=== PATIENT | male | born 1965 | race Caucasian/White ===

== ENCOUNTER 2025-02-04 16:25 | Inpatient (IN) | payer OTHER, SELFPAY ==
[2025-02-04 16:34] VITALS: BP 192/79; PULSE 115; RESP 18; TEMP 36.8; O2SAT 98
--- NOTE | 2025-02-04 16:37 | W.ED.PSYCHS ---
HPI - Psych General: Chief Complaint: Psychiatric Symptoms Stated Complaint: mhe Time Seen by Provider: 02/04/25 16:25 History of Present Illness: Patient is a 59-year-old male brought in by police department of [facility], for making terroristic threats. He states you all are going to and I took anthrax today. [facility] policewoman relates that the city brought him to the [facility] for a 96-hour hold. The 96-hour hold was signed off by [employer], and patient was brought here for medical screening examination and placement in psychiatric facility. He has charges for terroristic threats. Patient states to officer at bedside I am bombing the building, I already called in a bomb, you are a man anyway. When I looked at him stating what about the sweet children and the old people, looking at me he states you are all anyway. Patient would not stop talking, in tangential manner, regarding the [place] war, and anthrax. Officer notes that he was cooperative until he got to the door ER at which time he started to collapse, and talking as noted above. Associated symptoms: Reports delusions Related Data Home Medications ?Medication ?Instructions ?Recorded ?Confirmed No Known Home Medications 02/04/25 02/04/25 Review of Systems General: Reports: ROS unobtainable due to medical condition and ROS unobtainable due to mental status Physical Exam Const: COMMON NORMALS: patient oriented x3 NUTRITIONAL APPEARANCE: thin and underweight HENMT: COMMON NORMALS: normocephalic, atraumatic and hearing grossly normal bilaterally HEAD & SCALP: normocephalic and atraumatic OTHER: Cleft palate repair upper orbicularis and roof of mouth Resp: COMMON NORMALS: normal respiratory effort, No retractions and No use of accessory muscles AUSCULTATION: other (course t/o) Cardio: RATE: tachycardic GI: COMMON NORMALS: Normal to inspection, nondistended, normoactive bowel sounds present, Soft to palpation and non-tender PALPATION: Yes Soft to palpation : COMMON NORMALS: Yes no CVA tenderness BLADDER/KIDNEY EXAM: Yes no CVA tenderness Back/Pelvis: COMMON NORMALS: no CVA tenderness Extremity: COMMON NORMALS: full ROM and capillary refill normal Neuro: COMMON NORMALS: patient oriented x3 and CN's II-XII intact bilaterally Psych: COMMON NORMALS: negative for mental status grossly normal, negative for Normal thought process present, negative for cooperative, negative for normal affect, negative for speech normal and negative for activity/motor behavior normal APPEARANCE: Yes unkempt, Yes disheveled and Yes bizarre ATTITUDE: Yes bizarre, Yes uncooperative, Yes Belligerent attititude/behavior present, Yes agitated, Yes aggressive and Yes hostile SPEECH: No normal speech, Yes excessive, Yes rapid and Yes Pressured speech present MOOD & AFFECT: Yes elevated mood, Yes anxious, Yes hostile affect and Yes expansive affect THOUGHT PROCESS: abnormal, Confabulating thought process present, Flight of ideas present, Illogical thought process present, Tangential thought process present and racing thoughts THOUGHT CONTENT: Yes delusions and Yes Hallucination(s) present ATTENTION/CONCENTRATION: Yes concentration grossly impaired INSIGHT: Poor insight present (Psych) JUDGEMENT: Poor judgement present (Psych) Skin: NARRATIVE SKIN EXAM: Small superficial lacerations to bilateral ankles from handcuffs. Handcuffs are not tight Course Reevaluation(s): Reevaluation #1: Improved after Geodon and Ativan. Send of riding the sandwich Reevaluation #2: Patient awakes with stimulus, calm, sleeping. Consultations: Consultation #1: Excepted by Dr. Stovall however her urine analysis and drug screen is still pending and will need to be obtained and order carried over for psychiatric unit Vital Signs: Vital signs: Vital Signs Temperature 98.2 F 02/04/25 16:34 Pulse Rate 79 02/04/25 16:51 Respiratory Rate 14 02/04/25 16:51 Blood Pressure 97/63 02/04/25 16:51 Pulse Oximetry 98 02/04/25 16:51 Oxygen Delivery Me thod Room Air 02/04/25 16:34 MDM - Psych Medical Decision Making Patient was physically assessed, noting dry mucous membranes, offered water, patient declined. He continued to talk in tangential manner. Geodon 20 mg, Ativan 2 mg IM were given. Patient was offered Jean, Dr. Gautam, and sandwich. He finally related he would take a Dr. Gautam and [place]. Medical Records I reviewed the patient's medical records. Lab Data 02/04/25 18:01 02/04/25 18:01 Laboratory Results WBC 10.35 10^3/uL (3.29-11.43) 02/04/25 18: RBC 4.61 10^6/uL (3.85-5.65) 02/04/25 18:01 Hgb 14.50 g/dL (11.27-16.99) 02/04/25 18:01 Hct 41.6 % (37-53) 02/04/25 18:01 MCV 90.2 fl (82-101) 02/04/25 18: MCH 31.5 pg (27-33) 02/04/25 18: MCHC 34.9 g/dL (30-55) 02/04/25 18: RDW 12.5 % (12.1-15.1) 02/04/25 18: Plt Count 185 10^3/cmm (157-399) 02/04/25 18: MPV 9.5 fL (7.4-10.4) 02/04/25 18:01 Neut % (Auto) 75.5 % 02/04/25 18:01 Lymph % (Auto) 15.7 % 02/04/25 18:01 [place] % (Auto) 7.3 % 02/04/25 18:01 Eos % (Auto) 0.8 % 02/04/25 18:01 Baso % (Auto) 0.4 % 02/04/25 18: Neut # (Auto) 7.82 10^3/uL (1.8-7.7) H 02/04/25 18:01 Lymph # (Auto) 1.6 10^3/uL (0.8-4.8) 02/04/25 18:01 [place] # (Auto) 0.8 10^3/uL (0.2-0.9) 02/04/25 18:01 Eos # (Auto) 0.1 10^3/uL (0.0-0.8) 02/04/25 18:01 Baso # (Auto) 0.0 10^3/uL (0.0-0.1) 02/04/25 18:01 Nucleated RBC % (auto) 0 % 02/04/25 18: Nucleated RBCs # 0.0 /100WBC 02/04/25 18:01 Sodium 140 mmol/L (136-145) 02/04/25 18: Potassium 3.0 mmol/L (3.5-5.1) L 02/04/25 18:01 Chloride 106 mmol/L (98-107) 02/04/25 18:01 Carbon Dioxide 22 mmol/L (22-29) 02/04/25 18:01 Anion Gap 15.0 (5-19) 02/04/25 18:01 BUN 16 mg/dL (6-20) 02/04/25 18:01 Creatinine 0.5 mg/dL (0.7-1.2) L 02/04/25 18:01 GFR Calculation 171.4 mL/min (90-130) H 02/04/25 18:01 Glucose 174 mg/dL (65-115) H 02/04/25 18:01 POC Glucose 205 mg/dL (70-110) H 02/04/25 17:13 Calculated Osmolality 295 mOsm/kg (285-295) 02/04/25 18:01 Calcium 9.2 mg/dL (8.5-10.5) 02/04/25 18:01 Total Bilirubin 0.7 mg/dL (0.15-1.2) 02/04/25 18:01 AST 29 U/L (0-40) 02/04/25 18:01 ALT 28 U/L (0-41) 02/04/25 18:01 Alkaline Phosphatase 109 U/L (40-130) 02/04/25 18:01 Total Protein 6.5 g/dL (6.6-8.7) L 02/04/25 18:01 Albumin 4.1 g/dL (3.5-5.2) 02/04/25 18: Globulin 2.4 g/dL (1.3-4.6) 02/04/25 18:01 TSH 0.51 uIU/mL (0.27-4.20) 02/04/25 18:01 Salicylates < 0.3 mg/dL (3-10) L 02/04/25 18:01 Acetaminophen < 5.0 ug/mL (10-30) L 02/04/25 18:01 Ethyl Alcohol < 10 mg/dL (0-10) 02/04/25 18:01 No radiology studies performed this visit Discharge Plan Discharge Patient Disposition: Xfer Psychiatric Hosp Clinical Impression: Acute psychosis, Patient needs psychiatric hold for evaluation, Hypokalemia Condition: Stable Discharge Diet: Usual diet Discharge Activity: Resume usual activity Print Language: Latvian Coding Level of Care Code ED Cane Piler for Naveen Cheng
[2025-02-04 16:51] VITALS: BP 97/63; PULSE 79; RESP 14; O2SAT 98
[2025-02-04] MEDS: LORazepam 1 MG/0.5 ML injection 2 MG IM (17:10)
[2025-02-04 18:09] LABS: Hematocrit 41.6 % (37-53); Hemoglobin 14.50 g/dL (11.27-16.99); Mean Corpuscular HGB Conc 34.9 g/dL (30-55); Mean Corpuscular Hemoglobin 31.5 pg (27-33); Mean Corpuscular Volume 90.2 fl (82-101); Nucleated Red Blood Cells % 0 %; Platelet Count 185 10^3/cmm (157-399); Red Blood Count 4.61 10^6/uL (3.85-5.65); White Blood Count 10.35 10^3/uL (3.29-11.43)
[2025-02-04 18:37] LABS: Alanine Aminotransferase 28 U/L (0-41); Albumin Level 4.1 g/dL (3.5-5.2); Alkaline Phosphatase 109 U/L (40-130); Blood Urea Nitrogen 16 mg/dL (6-20); Calcium 9.2 mg/dL (8.5-10.5); Carbon Dioxide 22 mmol/L (22-29); Chloride 106 mmol/L (98-107); Globulin 2.4 g/dL (1.3-4.6); Glucose 174 mg/dL (65-115); Osmolality Calculated 295 mOsm/kg (285-295); Sodium 140 mmol/L (136-145); Thyroid Stimulating Hormone 0.51 uIU/mL (0.27-4.20); Total Protein 6.5 g/dL (6.6-8.7)
[2025-02-04 18:54] LABS: Acetaminophen < 5.0 ug/mL (10-30); Alcohol Level < 10 mg/dL (0-10); Salicylate < 0.3 mg/dL (3-10)
[2025-02-04 18:56] LABS: Anion Gap 15.0 (5-19); Aspartate Amino Transferase 29 U/L (0-40); Potassium 3.0 mmol/L (3.5-5.1)
[2025-02-04 20:52] VITALS: BP 97/63; PULSE 79; O2SAT 98
[2025-02-04 21:00] VITALS: BP 95/64; PULSE 81; RESP 14; TEMP 36.6; O2SAT 100
--- NOTE | 2025-02-05 00:40 | PC.NURSE ---
Addendum entered by Riley Smith RN 02/05/25 01:57: Pt. had a small abrasion on each ankle A band-aide ws placed on each side. no behavioral issues throughout the assessment. Pt. needs to be re-evaluated for allergies as he was in and out of consciousness. When asked he said no, but needs a follow up. Addendum entered by Riley Smith RN 02/05/25 01:54: Pt. had a small abrasion on each ankle A band-aide ws placed on each side. no behavioral issues throughout the assessment. Pt. needs to be re-evaluated for allergies as he was in and out of consciencd Original Note: Pt. had a small abrasion on each ankle,cd
[2025-02-05 06:00] VITALS: PULSE 97; TEMP 36.4
--- NOTE | 2025-02-05 11:47 | PC.NURSE ---
[facility] in [facility] was transferred to [facility]. Medication list is from 2019. Ziprasidone 80mg BID Seroquel 200mg 2 tabs @ HS Lantus 36 units SubQ Every AM Lantus 32 units SubQ Every HS Metformin 850mg TID Jardiance 25mg Daily Venlefaxine 75mg take 2 tabs BID
--- NOTE | 2025-02-05 12:38 | PC.NURSE ---
Pt. is refusing to give a urine sample unless we give it to a government official.
[2025-02-05 12:51] LABS: Glucose Urine UA 2+ (Normal); Nitrate Urine Negative (Negative); Specific Gravity, Urine 1.015 (1.005-1.030)
[2025-02-05 12:56] LABS: Add Urine Microscopic? YES
[2025-02-05 13:01] LABS: PCP Screen Urine Negative (Negative)
--- NOTE | 2025-02-05 14:48 | PC.NURSE ---
Pt. Blood sugar was [address] Stovall informed.
--- NOTE | 2025-02-05 15:03 | PC.NURSE ---
Verbal order given by Dr. Stovall for moderate sliding scale insulin with meals and @ HS, Seroquel 50mg PO @ HS, Geodon 40mg PO BID PRN, and Geodon 20mg Inj prn.
--- NOTE | 2025-02-05 15:42 | PC.NURSE ---
Pt. believes he has anthrax and is wanting to be placed in the same cell so he does not contaminate another cell. He wants cigarettes and water to be placed with him and he said when he dies his body can be burned so not to infect others. The brother came to visit and said he was DX with bi polar and schizophrenia after [place], and that he was given a bunch of vaccinations that made him sick and and he got down to less than 100 lbs. Brother said pt. is 100% disabled. Pt. was living in [facility] and moved to [facility]. The brother was not very helpful as far as medication went. Brother did not know what medications he takes or what pharmacy the medications get filled at. The brother said he has never seen his brother like this and thought he seemed fine, until signee informed him of some of the things pt. had been saying.
--- NOTE | 2025-02-05 18:03 | P.NPUHP_ITS ---
Providers/Chief Complaint 2 Admitting Physician: Lloyd Stovlal MD Chief Complaint: mhe HPI NPU History of Present Illness Filiberto Espinoza is a 59 year old male who presented to the emergency department with the following report: Chief Complaint: Psychiatric Symptoms Stated Complaint: mhe Time Seen by Provider: 02/04/25 16:25 History of Present Illness: Patient is a 59-year-old male brought in by police department of [facility], for making terroristic threats. He states you all are going to and I took anthrax today. [facility] community relations police lieutenant relates that the city brought him to the alf for a 96-hour hold. The 96-hour hold was signed off by Mental Health Program Manager, and patient was brought here for medical screening examination and placement in psychiatric facility. He has charges for terroristic threats. Patient states to officer at bedside I am bombing the building, I already called in a bomb, you are a man anyway. When I looked at him stating what about the sweet children and the old people, looking at me he states you are all anyway. Patient would not stop talking, in tangential manner, regarding the [place] war, and anthrax. Officer notes that he was cooperative until he got to the door ER at which time he started to collapse, and talking as noted above. Associated symptoms: Reports delusions He was admitted to the neuropsychiatric unit for definitive treatment of those issues. He has not submitted for a UDS and presented unknown to [facility] psychiatric through inpatient or outpatient services reporting: Chief complaint Presentation for evaluation of chronic mental health symptoms including paranoia, depression, and history of multiple psychiatric hospitalizations. History of the present complaint Reported being a and described the local community as consisting primarily of veterans, expressing a strong sense of responsibility to protect those around. Described receiving an anthrax vaccination during service and identified as the last surviving member of those affected by anthrax exposure. Stated that after receiving the anthrax shot, began experiencing mental health changes, describing a transition from feeling totally normal to developing mental health symptoms. Attributed the onset of mental health issues to the anthrax exposure and referenced a belief that the infection led to significant changes in mental status. Reported multiple psychiatric hospitalizations since returning from service, estimating between 20 and 50 admissions over the years. Described being brought to the hospital to protect family and the community, referencing concerns about threats and the need to save [employer] and eliminate perceived threats. Expressed paranoia related to anthrax infection, describing fears of harming others and being monitored for stability. Endorsed a history of depression, anxiety, and paranoia, stating I've had all those things. Reported paranoia as a persistent symptom, particularly related to fears of infecting others and concerns about safety in the community. Described acting like a maniac at [facility] due to worsening symptoms and traffic caused by others. Reported a diagnosis of paranoid schizophrenia, describing symptoms as very mild and specifying that has never experienced auditory hallucinations or voices instructing actions. Described the presence of distracting voices in the head but denied command hallucinations. Noted a family history of schizophrenia on the maternal side. Reported bizarre and strange dreams that disrupt sleep but denied experiencing nightmares or flashbacks related to past trauma. Described a history of quick temper and feistiness, with efforts to control anger and avoid overreacting. Reported a history of alcohol use and dependence, with inpatient treatment at the [facility] for [facility] and stated abstinence from alcohol since 2010. Described outpatient counseling and support for various addictions and dependencies, including participation in clinics and groups. Denied current use of marijuana, methamphetamine, opiates, or other illicit drugs. Endorsed tobacco use, stating it has kept me alive so far, and expressed ambivalence about quitting. 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 Described persistent underdevelopment in size and speech difficulties, with special education services focused on speech. Reported no history of neglect, physical abuse, emotional abuse, or sexual abuse during childhood, describing the family as kind of spoiled and fortunate. Stated that parents remained together until the father's at age 29 due to stress and overwork. Reported the recent of mother approximately three months ago in 2018. Has one older brother and no other siblings. 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 Described living alone in an apartment and receiving disability benefits. Reported one marriage lasting 15 years, ending due to disability and spouse's need to care for family. Has one biological child and a son with a half-sister. Reported being prescribed Effexor for mental health symptoms, with uncertainty about the exact dosage. Described receiving other medications to maintain blood sugar and fracture health, but did not specify additional psychiatric medications. Reported a history of alcoholism treatment and abstinence since 2010. Described current health as totally healthy, but just dying, with concerns about blood sugar levels being out of control and needing ongoing monitoring. Reported being given pills to manage symptoms and sleep until the next day. Expressed a desire to stay alive and denied current suicidal ideation. Reported that as long as can reach brother, mood remains stable and paranoia is alleviated. Described ongoing fears of harming others due to anthrax infection but expressed intent to avoid causing harm. Reported that once reunited with brother and outside the current environment, would no longer be a threat to others. Described plans for end-of-life care involving cremation to prevent further anthrax contamination. Mental health history Had onset of psychiatric symptoms following [place] anthrax vaccination, describing ?became totally mental? upon return from service. History of paranoid schizophrenia with persistent persecutory delusions regarding infectivity and need to protect others. Also experienced depressive and anxious symptoms related to these beliefs. Multiple inpatient psychiatric admissions since discharge, including [facility] and numerous brief stays for behavioral health evaluation. Engaged in [facility] and [facility] groups [facility] for [facility] and mental health monitoring. Currently prescribed venlafaxine (Effexor) for mood symptoms, dose to be clarified. Family history notable for schizophrenia on maternal side. Social history [place] of the [place] with a single 15-year marriage that ended when spouse assumed family caregiving responsibilities. Has one biological son and a stepsister to that son living in the [facility], and an older brother who provides support. Resides alone in an apartment. 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 History of alcohol use disorder with [facility] and sustained sobriety since 2010. Continues regular tobacco use as a coping mechanism. Denies cannabis and other illicit drug use. Meds NPU Home Medications ?Medication ?Instructions ?Recorded ?Confirmed ?Last Taken ?Type No Known Home Medications 02/04/2501/21 Unknown History Mental Status Exam 2 MSE Comments: This is a slender well-developed white male looking older than his stated age with limited grooming and eye contact. Noteworthy scar on lip consistent with reports of cleft lip and palate. Absent dentition. No abnormal movements except for psychomotor agitation. Somewhat cooperative with exam and mild to moderate distress. Speech was slightly increased rate and normal volume with significant dysarthria. Mood described as having a tough time, affect congruent. Thought process organized. Thought content: Patient denied suicidal or homicidal ideation, there were no delusions reported but clear paranoid, grandiose and persecutory delusions noted, he denied any auditory or visual hallucinations. Denies current thoughts to hurt or kill self. Reports feeling like the most notorious killer in the area and mentions eliminating people at [facility], but denies current intent to harm others if returned to his brother. Denies hearing voices or seeing things. Exhibits delusional thinking, including beliefs about anthrax infection, being the last survivor, and having a significant impact on global events. Reports having experienced depression after service. Mentions stress related to perceived threats and responsibilities to protect family and community. Displays impaired reasoning with delusional beliefs and paranoia. Reports feeling fine as long as he can reach his brother. Attention and concentration were limited and memory was somewhat unreliable but not more formally tested. He is alert and oriented times person and place. Insight, judgment and impulse control impaired. Vitals/I&O/Wt Last Vital Signs Temp 97.6 F 02/05/25 06:00 Pulse 97 02/05/25 06:00 Resp 14 02/04/25 21:00 BP 95/64 02/04/25 21:00 Pulse Ox 100 02/04/25 21:00 O2 Del Method Room Air 02/04/25 21:00 Data NPU 02/04/25 18:01 02/04/25 18:01 A&P Assessment and plan 1. Acute psychosis: 2. Schizophrenia: Plan: Thjames is a 59-year-old white male with a long history of mental health and possibly addiction [facility] who presents with erratic behavior which led to a 96-hour hold. Reports history of paranoid schizophrenia with symptoms including paranoia but without auditory hallucinations. Reports depression and anxiety following service and anthrax exposure but is unclear if we anthrax exposure is real or imagined. History of alcohol use disorder, currently in remission since 2010. History of cleft palate and cleft lip with associated speech and developmental delays. Multiple prior psychiatric hospitalizations. No current suicidal or homicidal ideation but he was quite threatening on admission. Plan Prescribed Invega to address mood and irrational thoughts. Recommended monitoring response to the medication to assess efficacy and tolerability. 1. Continue current medication. Initiate Invega 6 mg p.o. daily. 2. Discontinued one-to-one and started every 15 minute checks for safety. 3. Encourage individual, group and milieu therapy. 4. Encourage sober living treatment after discharge at the highest level care to which she is willing to commit. 5. Obtain collateral information. 6. Observe against the backdrop of the 96-hour hold. PDMP PDMP Reviewed: Not Reviewed Involuntary Hold Information 2 Hold Status: Legal Status: 96 Hour Hold Date/Time Hold Expires: 02/08/25 Attestations NPU 2 Medical Necessity Statement*: Inpatient hospitalization is medically necessary and the clinically appropriate intervention at this time. We will monitor/initiate medications and make changes as indicated. He will be in the hospital for over 2 midnights. Likely length of stay 5 to 7 days. Coding Level of Care Code Acute Code for [facility] Diagnoses Acute psychosis F23 Schizophrenia F20.9
[2025-02-05 19:52] VITALS: BP 104/68; PULSE 88; RESP 16; TEMP 36.7; O2SAT 98
[2025-02-05 22:00] VITALS: BP 104/68; PULSE 88; RESP 16; TEMP 36.7; O2SAT 98
[2025-02-06 06:00] VITALS: BP 131/79; PULSE 71; RESP 17; TEMP 36.6; O2SAT 100
[2025-02-06] MEDS: paliperidone ER 6 mg Tablet PO (08:27)
--- NOTE | 2025-02-06 08:38 | P.NPUPN_ITS ---
Subjective NPU 2 Subjective: Patient presented today reporting that things are going all right. He denied any difficulties with the medication acknowledging that since he is only taking it for 1 day lets start. He reports he is having less intrusive thoughts and irritability at this point. He denied any side effects of the medication and reported that he feels optimistic that things will get better. Mental Status Exam 2 MSE Comments: This is a slender well-developed white male looking older than his stated age with limited grooming and eye contact. Noteworthy scar on lip consistent with reports of cleft lip and palate. Absent dentition. No abnormal movements except for psychomotor agitation. Somewhat cooperative with exam and mild to moderate distress. Speech was slightly increased rate and normal volume with significant dysarthria. Mood described as having a tough time, affect congruent. Thought process organized. Thought content: Patient denied suicidal or homicidal ideation, there were no delusions reported but clear paranoid, grandiose and persecutory delusions noted, he denied any auditory or visual hallucinations. Denies current thoughts to hurt or kill self. Reports feeling like the most notorious killer in the area and mentions eliminating people at [facility], but denies current intent to harm others if returned to his brother. Denies hearing voices or seeing things. Exhibits delusional thinking, including beliefs about anthrax infection, being the last survivor, and having a significant impact on global events. Reports having experienced depression after service. Mentions stress related to perceived threats and responsibilities to protect family and community. Displays impaired reasoning with delusional beliefs and paranoia. Reports feeling fine as long as he can reach his brother. Attention and concentration were limited and memory was somewhat unreliable but not more formally tested. He is alert and oriented times person and place. Insight, judgment and impulse control impaired. Vitals/I&O/Wt Last Vital Signs Temp 97.8 F 02/06/25 06:00 Pulse 71 02/06/25 06:00 Resp 17 02/06/25 06:00 BP 131`/79 02/06/25 06:00 Pulse Ox 100 02/06/25 06:00 O2 Del Method Room Air 02/06/25 06:00 Data NPU 02/04/25 18:01 02/04/25 18:01 A&P Assessment and plan 1. Acute psychosis: 2. Schizophrenia: Plan: Ths is a 59-year-old white male with a long history of mental health and possibly [facility] who presents with erratic behavior which led to a 96-hour hold. Reports history of paranoid schizophrenia with symptoms including paranoia but without auditory hallucinations. Reports depression and anxiety following service and anthrax exposure but is unclear if we anthrax exposure is real or imagined. History of alcohol use disorder, currently in remission since 2010. History of cleft palate and cleft lip with associated speech and developmental delays. Multiple prior psychiatric hospitalizations. No current suicidal or homicidal ideation but he was quite threatening on admission. Plan Prescribed Invega to address mood and irrational thoughts. Recommended monitoring response to the medication to assess efficacy and tolerability. 1. Continue current medication. Initiated Invega 6 mg p.o. daily. 2. Discontinued one-to-one and started every 15 minute checks for safety. 3. Encourage individual, group and milieu therapy. 4. Encourage sober living treatment after discharge at the highest level care to which she is willing to commit. 5. Obtain collateral information. 6. Observe against the backdrop of the 96-hour hold. PDMP PDMP Reviewed: Not Reviewed Involuntary Hold Information 2 Hold Status: Legal Status: 96 Hour Hold Date/Time Hold Expires: 02/08/25 Attestations NPU 2 Medical Necessity Statement*: Inpatient hospitalization is medically necessary and the clinically appropriate intervention at this time. We will monitor/initiate medications and make changes as indicated. He will be in the hospital for over 2 midnights. Likely length of stay 5 to 7 days. Coding Level of Care Code Acute Code for [facility] Diagnoses Acute psychosis F23 Schizophrenia F20.9
--- NOTE | 2025-02-06 13:04 | PC.NURSE ---
Medication list was received from the MD and Dr. Stovall approved the list except for Geodon d/t Geodon had already been ordered prior to receiving the list.
[2025-02-06 13:32] VITALS: BP 145/93; PULSE 92; RESP 19; TEMP 36.7; O2SAT 100
[2025-02-06 19:40] VITALS: BP 146/73; PULSE 82; RESP 16; O2SAT 99
[2025-02-06] MEDS: ATORVASTATIN 10 MG TABLET 40 MG PO (21:07)
[2025-02-07 05:22] VITALS: BP 138/95; PULSE 77; RESP 17; TEMP 36.3; O2SAT 96
[2025-02-07] MEDS: paliperidone ER 6 mg Tablet PO (08:26)
[2025-02-07] MEDS: venlafaxine ER (24HR) 75 mg Capsule 225 MG PO (08:26)
[2025-02-07] MEDS: multivitamin therapeutic Tablet 1 TAB PO (08:26)
[2025-02-07 12:51] VITALS: BP 143/83; PULSE 74; RESP 16; TEMP 36.6; O2SAT 99
--- NOTE | 2025-02-07 13:10 | PC.NURSE ---
Pt.'s brother called and wanted to let staff know that the brother had went and brought groceries to pt. and today he checked and none of the groceries look like they have been touched at all. The brother also said that when he saw his brother in the NPU it looked like pt. had lost weight.
--- NOTE | 2025-02-07 15:38 | P.NPUPN_ITS ---
Subjective NPU 2 Subjective: Patient presented today reporting that life is going well. He reports that he feels this medication is working better than other medications have. We discussed making sure that we have a solid foundation for improvement and considering initiating the Invega Sustenna injection and he understood and agreed to think about that as is documented in this note. He denied any side effects of the medication. Mental Status Exam 2 MSE Comments: This is a slender well-developed white male looking older than his stated age with limited grooming and eye contact. Noteworthy scar on lip consistent with reports of cleft lip and palate. Absent dentition. No abnormal movements except for psychomotor agitation. Somewhat cooperative with exam and mild to moderate distress. Speech was slightly increased rate and normal volume with significant dysarthria. Mood described as having a tough time, affect congruent. Thought process organized. Thought content: Patient denied suicidal or homicidal ideation, there were no delusions reported but clear paranoid, grandiose and persecutory delusions noted, he denied any auditory or visual hallucinations. Denies current thoughts to hurt or kill self. Reports feeling like the most notorious killer in the area and mentions eliminating people at [facility], but denies current intent to harm others if returned to his brother. Denies hearing voices or seeing things. Exhibits delusional thinking, including beliefs about anthrax infection, being the last survivor, and having a significant impact on global events. Reports having experienced depression after service. Mentions stress related to perceived threats and responsibilities to protect family and community. Displays impaired reasoning with delusional beliefs and paranoia. Reports feeling fine as long as he can reach his brother. Attention and concentration were limited and memory was somewhat unreliable but not more formally tested. He is alert and oriented times person and place. Insight, judgment and impulse control impaired. Vitals/I&O/Wt Last Vital Signs Temp 98 F 02/07/25 12:51 Pulse 74 02/07/25 12:51 Resp 16 02/07/25 12:51 BP 143/83 02/07/25 12:51 Pulse Ox 99 02/07/25 12:51 O2 Del Method Room Air 02/07/25 12:51 Data NPU 02/04/25 18:01 02/04/25 18:01 A&P Assessment and plan 1. Acute psychosis: 2. Schizophrenia: Plan: Ths is a 59-year-old white male with a long history of mental health and possibly [facility] who presents with erratic behavior which led to a 96-hour hold. Reports history of paranoid schizophrenia with symptoms including paranoia but without auditory hallucinations. Reports depression and anxiety following service and anthrax exposure but is unclear if we anthrax exposure is real or imagined. History of alcohol use disorder, currently in remission since 2010. History of cleft palate and cleft lip with associated speech and developmental delays. Multiple prior psychiatric hospitalizations. No current suicidal or homicidal ideation but he was quite threatening on admission. Plan Prescribed Invega to address mood and irrational thoughts. Recommended monitoring response to the medication to assess efficacy and tolerability. 1. Continue current medication. Initiated Invega 6 mg p.o. daily. 2. Discontinued one-to-one and started every 15 minute checks for safety. 3. Encourage individual, group and milieu therapy. 4. Encourage sober living treatment after discharge at the highest level care to which she is willing to commit. 5. Obtain collateral information. 6. Observe against the backdrop of the 96-hour hold. PDMP PDMP Reviewed: Not Reviewed Involuntary Hold Information 2 Hold Status: Legal Status: 96 Hour Hold Date/Time Hold Expires: 02/08/25 Attestations NPU 2 Medical Necessity Statement*: Inpatient hospitalization is medically necessary and the clinically appropriate intervention at this time. We will monitor/initiate medications and make changes as indicated. Likely length of stay 5 to 7 days. Coding Level of Care Code Acute Code for [facility] Diagnoses Acute psychosis F23 Schizophrenia F20.9
[2025-02-07] MEDS: ATORVASTATIN 10 MG TABLET 40 MG PO (21:55)
[2025-02-07 22:00] VITALS: BP 137/72; PULSE 64; RESP 18; TEMP 36.4; O2SAT 98
[2025-02-08 06:00] VITALS: BP 153/90; PULSE 70; RESP 20; TEMP 36.7; O2SAT 100
[2025-02-08] MEDS: multivitamin therapeutic Tablet 1 TAB PO (08:38)
[2025-02-08] MEDS: paliperidone ER 6 mg Tablet PO (08:38)
[2025-02-08] MEDS: venlafaxine ER (24HR) 75 mg Capsule 225 MG PO (08:38)
--- NOTE | 2025-02-08 09:09 | NUR.SHIFT ---
Pt states that he slept good last night. Denies anxiety and depression. No reports of SI/HI or hallucinations. No pain reported. He is calm and cooperative on assessment. Moments of pacing in his room and laying in bed.
[2025-02-08 13:10] VITALS: BP 154/89; PULSE 85; RESP 22; TEMP 36.6; O2SAT 93
--- NOTE | 2025-02-08 19:12 | W.PM.NPUPNS ---
Subjective NPU Subjective: Patient presented today reporting that he is feeling better and possibly is good he is felt in some time feeling the medication is very helpful. We discussed the risks, benefits and alternatives of initiating the injection loading dose tomorrow. He understood and agreed to proceed as is documented in his note. He denied any side effects of the medication. Mental Status Exam MSE Comments: This is a slender well-developed white male looking older than his stated age with limited grooming and eye contact. Noteworthy scar on lip consistent with reports of cleft lip and palate. Absent dentition. No abnormal movements except for psychomotor agitation. Somewhat cooperative with exam and mild to moderate distress. Speech was slightly increased rate and normal volume with significant dysarthria. Mood described as having a tough time, affect congruent. Thought process organized. Thought content: Patient denied suicidal or homicidal ideation, there were no delusions reported but clear paranoid, grandiose and persecutory delusions noted, he denied any auditory or visual hallucinations. Denies current thoughts to hurt or kill self. Reports feeling like the most notorious killer in the area and mentions eliminating people at [facility], but denies current intent to harm others if returned to his brother. Denies hearing voices or seeing things. Exhibits delusional thinking, including beliefs about anthrax infection, being the last survivor, and having a significant impact on global events. Reports having experienced depression after service. Mentions stress related to perceived threats and responsibilities to protect family and community. Displays impaired reasoning with delusional beliefs and paranoia. Reports feeling fine as long as he can reach his brother. Attention and concentration were limited and memory was somewhat unreliable but not more formally tested. He is alert and oriented times person and place. Insight, judgment and impulse control impaired. Vitals/I&O/Wt Last Vital Signs Temp 97.6 F 02/08/25 20:15 Pulse 80 02/08/25 20:15 Resp 17 02/08/25 20:15 BP 121/76 02/08/25 20:15 Pulse Ox 99 02/08/25 20:15 O2 Del Method Room Air 02/08/25 20:15 Data NPU 02/04/25 18:01 02/04/25 18:01 A&P Assessment and plan 1. Acute psychosis: 2. Schizophrenia: Plan: Rosa is a 59-year-old white male with a long history of mental health and possibly [facility] who presents with erratic behavior which led to a 96-hour hold. Reports history of paranoid schizophrenia with symptoms including paranoia but without auditory hallucinations. Reports depression and anxiety following service and anthrax exposure but is unclear if we anthrax exposure is real or imagined. History of alcohol use disorder, currently in remission since 2010. History of cleft palate and cleft lip with associated speech and developmental delays. Multiple prior psychiatric hospitalizations. No current suicidal or homicidal ideation but he was quite threatening on admission. Plan Prescribed Invega to address mood and irrational thoughts. Recommended monitoring response to the medication to assess efficacy and tolerability. 1. Continue current medication. Initiated Invega 6 mg p.o. daily. Initiate Invega injection the loading dose so in the deltoid 224 mg tomorrow. 2. Discontinued one-to-one and started every 15 minute checks for safety. 3. Encourage individual, group and milieu therapy. 4. Encourage sober living treatment after discharge at the highest level care to which she is willing to commit. 5. Obtain collateral information. 6. Observe against the backdrop of the 96-hour hold. PDMP PDMP Reviewed: Not Reviewed Involuntary Hold Information Hold Status: Legal Status: 96 Hour Hold Date/Time Hold Expires: 02/08/25 Attestations NPU Medical Necessity Statement*: Inpatient hospitalization is medically necessary and the clinically appropriate intervention at this time. We will monitor/initiate medications and make changes as indicated. Likely length of stay 4-6 days. Coding Level of Care Code Acute Code for [facility] Diagnoses Acute psychosis F23 Schizophrenia F20.9
[2025-02-08 20:15] VITALS: BP 121/76; PULSE 80; RESP 17; TEMP 36.4; O2SAT 99
[2025-02-08] MEDS: ATORVASTATIN 10 MG TABLET 40 MG PO (21:31)
[2025-02-09 06:00] VITALS: BP 97/66; PULSE 94; RESP 18; TEMP 36.7; O2SAT 100
[2025-02-09] MEDS: venlafaxine ER (24HR) 75 mg Capsule 225 MG PO (08:30)
[2025-02-09] MEDS: multivitamin therapeutic Tablet 1 TAB PO (08:30)
[2025-02-09] MEDS: paliperidone ER 6 mg Tablet PO (08:30)
[2025-02-09 14:00] VITALS: BP 120/66; PULSE 88; RESP 20; TEMP 36.6; O2SAT 98
[2025-02-09 20:21] VITALS: BP 96/64; PULSE 82; RESP 16; TEMP 36.8; O2SAT 97
--- NOTE | 2025-02-09 20:57 | P.NPUPN_ITS ---
Subjective NPU 2 Subjective: Patient presented today reporting that he has been doing fine. He feels he is adjusted to the Invega fine and we discussed the risks, benefits and alternatives of initiating the Invega injection and he understood and agreed to proceed as is documented in this note. He denied any side effects to his medication and is committed to the injection being a good idea. Mental Status Exam 2 MSE Comments: This is a slender well-developed white male looking older than his stated age with limited grooming and eye contact. Noteworthy scar on lip consistent with reports of cleft lip and palate. Absent dentition. No abnormal movements except for psychomotor agitation. Somewhat cooperative with exam and mild to moderate distress. Speech was slightly increased rate and normal volume with significant dysarthria. Mood described as having a tough time, affect congruent. Thought process organized. Thought content: Patient denied suicidal or homicidal ideation, there were no delusions reported but clear paranoid, grandiose and persecutory delusions noted, he denied any auditory or visual hallucinations. Denies current thoughts to hurt or kill self. Reports feeling like the most notorious killer in the area and mentions eliminating people at [facility], but denies current intent to harm others if returned to his brother. Denies hearing voices or seeing things. Exhibits delusional thinking, including beliefs about anthrax infection, being the last survivor, and having a significant impact on global events. Reports having experienced depression after service. Mentions stress related to perceived threats and responsibilities to protect family and community. Displays impaired reasoning with delusional beliefs and paranoia. Reports feeling fine as long as he can reach his brother. Attention and concentration were limited and memory was somewhat unreliable but not more formally tested. He is alert and oriented times person and place. Insight, judgment and impulse control impaired. Vitals/I&O/Wt Last Vital Signs Temp 98.2 F 02/09/25 20:21 Pulse 82 02/09/25 20:21 Resp 16 02/09/25 20:21 BP 96/64 02/09/25 20:21 Pulse Ox 97 02/09/25 20:21 O2 Del Method Room Air 02/09/25 20:21 Data NPU 02/04/25 18:01 02/04/25 18:01 A&P Assessment and plan 1. Acute psychosis: 2. Schizophrenia: Plan: Ths is a 59-year-old white male with a long history of mental health and possibly [facility] who presents with erratic behavior which led to a 96-hour hold. Reports history of paranoid schizophrenia with symptoms including paranoia but without auditory hallucinations. Reports depression and anxiety following service and anthrax exposure but is unclear if we anthrax exposure is real or imagined. History of alcohol use disorder, currently in remission since 2010. History of cleft palate and cleft lip with associated speech and developmental delays. Multiple prior psychiatric hospitalizations. No current suicidal or homicidal ideation but he was quite threatening on admission. Plan Prescribed Invega to address mood and irrational thoughts. Recommended monitoring response to the medication to assess efficacy and tolerability. 1. Continue current medication. Initiated Invega 6 mg p.o. daily. Initiate Invega injection the loading dose so in the deltoid 224 mg tomorrow. 2. Discontinued one-to-one and started every 15 minute checks for safety. 3. Encourage individual, group and milieu therapy. 4. Encourage sober living treatment after discharge at the highest level care to which she is willing to commit. 5. Obtain collateral information. 6. Observe against the backdrop of the 96-hour hold. PDMP PDMP Reviewed: Not Reviewed Involuntary Hold Information 2 Hold Status: Legal Status: 96 Hour Hold Date/Time Hold Expires: 02/08/25 Attestations NPU 2 Medical Necessity Statement*: Inpatient hospitalization is medically necessary and the clinically appropriate intervention at this time. We will monitor/initiate medications and make changes as indicated. Likely length of stay 4-6 days. Coding Level of Care Code Acute Code for [facility] Diagnoses Acute psychosis F23 Schizophrenia F20.9
[2025-02-09] MEDS: ATORVASTATIN 10 MG TABLET 40 MG PO (22:15)
[2025-02-10 06:00] VITALS: BP 109/71; PULSE 89; RESP 16; TEMP 36.4; O2SAT 98
[2025-02-10] MEDS: multivitamin therapeutic Tablet 1 TAB PO (07:58)
[2025-02-10] MEDS: paliperidone ER 6 mg Tablet PO (07:58)
[2025-02-10] MEDS: venlafaxine ER (24HR) 75 mg Capsule 225 MG PO (07:59)
[2025-02-10] MEDS: paliperidone palmitate 234 mg Syringe IM (09:42)
--- NOTE | 2025-02-10 09:42 | PC.NURSE ---
SUMI SUSTENNA 234 MG GIVEN IM IN LEFT DELTOID PER PHYSICIAN ORDER. TOLERATED INJECTION WELL. WILL CONT TO MONITOR INJECTION SITE FOR ANY REDNESS, SWELLING, OR IRRITATION. LOT [id number] EXP APR 2026
[2025-02-10 13:16] VITALS: BP 124/79; PULSE 84; RESP 18; TEMP 36.3; O2SAT 98
--- NOTE | 2025-02-10 19:23 | P.NPUPN_ITS ---
Subjective NPU 2 Subjective: Patient presented today reporting that he is doing all right but he was pacing in somewhat distressed about people thinking that he was being threatening in [facility] when he was not threatening them but telling them that he was worried that something was going to happen if they did not do what he was asking them to do. He denies being aggressive and would not hurt people and is somewhat frustrated that that is the message that was taken away from those interactions. We discussed the importance of him continuing the treatment as prescribed and getting better and that as he gets better we will be able to improve the circumstance that he finds himself in. He denied any side effects of the medication and we discussed that he would get his second loading dose injection of Invega Sustenna shortly. Mental Status Exam 2 MSE Comments: This is a slender well-developed white male looking older than his stated age with limited grooming and eye contact. Noteworthy scar on lip consistent with reports of cleft lip and palate. Absent dentition. No abnormal movements except for psychomotor agitation. Somewhat cooperative with exam and mild to moderate distress. Speech was slightly increased rate and normal volume with significant dysarthria. Mood described as having a tough time, affect congruent. Thought process organized. Thought content: Patient denied suicidal or homicidal ideation, there were no delusions reported but clear paranoid, grandiose and persecutory delusions noted, he denied any auditory or visual hallucinations. Denies current thoughts to hurt or kill self. Reports feeling like the most notorious killer in the area and mentions eliminating people at [facility], but denies current intent to harm others if returned to his brother. Denies hearing voices or seeing things. Exhibits delusional thinking, including beliefs about anthrax infection, being the last survivor, and having a significant impact on global events. Reports having experienced depression after service. Mentions stress related to perceived threats and responsibilities to protect family and community. Displays impaired reasoning with delusional beliefs and paranoia. Reports feeling fine as long as he can reach his brother. Attention and concentration were limited and memory was somewhat unreliable but not more formally tested. He is alert and oriented times person and place. Insight, judgment and impulse control impaired. Vitals/I&O/Wt Last Vital Signs Temp 97.8 F 02/10/25 20:01 Pulse 79 02/10/25 20:01 Resp 16 02/10/25 20:01 BP 146/91 02/10/25 20:01 Pulse Ox 99 02/10/25 20:01 O2 Del Method Room Air 02/10/25 20:01 Weight last 48 hrs Weight 59.602 kg Data NPU 02/04/25 18:01 02/04/25 18:01 A&P Assessment and plan 1. Acute psychosis: 2. Schizophrenia: Plan: Rosa is a 59-year-old white male with a long history of mental health and possibly [facility] who presents with erratic behavior which led to a 96-hour hold. Reports history of paranoid schizophrenia with symptoms including paranoia but without auditory hallucinations. Reports depression and anxiety following service and anthrax exposure but is unclear if we anthrax exposure is real or imagined. History of alcohol use disorder, currently in remission since 2010. History of cleft palate and cleft lip with associated speech and developmental delays. Multiple prior psychiatric hospitalizations. No current suicidal or homicidal ideation but he was quite threatening on admission. Plan Prescribed Invega to address mood and irrational thoughts. Recommended monitoring response to the medication to assess efficacy and tolerability. 1. Continue current medication. Initiated Invega 6 mg p.o. daily. Initiate Invega injection the loading dose so in the deltoid 224 mg tomorrow. 2. Discontinued one-to-one and started every 15 minute checks for safety. 3. Encourage individual, group and milieu therapy. 4. Encourage sober living treatment after discharge at the highest level care to which she is willing to commit. 5. Obtain collateral information. 6. Observe against the backdrop of the 96-hour hold. PDMP PDMP Reviewed: Not Reviewed Involuntary Hold Information 2 Hold Status: Legal Status: 96 Hour Hold Date/Time Hold Expires: 02/08/25 Attestations NPU 2 Medical Necessity Statement*: Inpatient hospitalization is medically necessary and the clinically appropriate intervention at this time. We will monitor/initiate medications and make changes as indicated. Likely length of stay 4-6 days. Coding Level of Care Code Acute Code for [facility] Diagnoses Acute psychosis F23 Schizophrenia F20.9
[2025-02-10 20:01] VITALS: BP 146/91; PULSE 79; RESP 16; TEMP 36.6; O2SAT 99
[2025-02-10] MEDS: ATORVASTATIN 10 MG TABLET 40 MG PO (21:19)
[2025-02-11 06:00] VITALS: BP 123/81; PULSE 86; RESP 16; TEMP 36.6; O2SAT 95
[2025-02-11] MEDS: paliperidone ER 6 mg Tablet PO (08:20)
[2025-02-11] MEDS: multivitamin therapeutic Tablet 1 TAB PO (08:20)
[2025-02-11] MEDS: venlafaxine ER (24HR) 75 mg Capsule 225 MG PO (08:20)
--- NOTE | 2025-02-11 13:17 | W.PM.NPUPNS ---
Subjective NPU Subjective: Patient presented today reporting that things are going all right. He reports that he is accepting of the situation that has him on a 21-day hold. He reports that being here he is safe and getting better and getting the medication he needs but he continues to have concerns that he is on a picked up by the police because of the statements he made before he came home being misconstrued as threats versus concerns. He continued to lament about that issue but otherwise denied any other problems and denied any side effects to his medication. Mental Status Exam MSE Comments: This is a slender well-developed white male looking older than his stated age with limited grooming and eye contact. Noteworthy scar on lip consistent with reports of cleft lip and palate. Absent dentition. No abnormal movements except for psychomotor agitation. Somewhat cooperative with exam and mild to moderate distress. Speech was slightly increased rate and normal volume with significant dysarthria. Mood described as having a tough time, affect congruent. Thought process organized. Thought content: Patient denied suicidal or homicidal ideation, there were no delusions reported but clear paranoid, grandiose and persecutory delusions noted, he denied any auditory or visual hallucinations. Denies current thoughts to hurt or kill self. Reports feeling like the most notorious killer in the area and mentions eliminating people at [facility], but denies current intent to harm others if returned to his brother. Denies hearing voices or seeing things. Exhibits delusional thinking, including beliefs about anthrax infection, being the last survivor, and having a significant impact on global events. Reports having experienced depression after service. Mentions stress related to perceived threats and responsibilities to protect family and community. Displays impaired reasoning with delusional beliefs and paranoia. Reports feeling fine as long as he can reach his brother. Attention and concentration were limited and memory was somewhat unreliable but not more formally tested. He is alert and oriented times person and place. Insight, judgment and impulse control impaired. Vitals/I&O/Wt Last Vital Signs Temp 97.9 F 02/11/25 06:00 Pulse 86 02/11/25 06:00 Resp 16 02/11/25 06:00 BP 123/81 02/11/25 06:00 Pulse Ox 95 02/11/25 06:00 O2 Del Method Room Air 02/11/25 06:00 Weight last 48 hrs Weight 59.602 kg Data NPU 02/04/25 18:01 02/04/25 18:01 A&P Assessment and plan 1. Acute psychosis: 2. Schizophrenia: Plan: Rosa is a 59-year-old white male with a long history of mental health and possibly [facility] who presents with erratic behavior which led to a 96-hour hold. Reports history of paranoid schizophrenia with symptoms including paranoia but without auditory hallucinations. Reports depression and anxiety following service and anthrax exposure but is unclear if we anthrax exposure is real or imagined. History of alcohol use disorder, currently in remission since 2010. History of cleft palate and cleft lip with associated speech and developmental delays. Multiple prior psychiatric hospitalizations. No current suicidal or homicidal ideation but he was quite threatening on admission. Plan Prescribed Invega to address mood and irrational thoughts. Recommended monitoring response to the medication to assess efficacy and tolerability. 1. Continue current medication. Initiated Invega 6 mg p.o. daily. Initiated Invega injection the loading dose so in the deltoid 224 mg IM.. 2. Discontinued one-to-one and started every 15 minute checks for safety. 3. Encourage individual, group and milieu therapy. 4. Encourage sober living treatment after discharge at the highest level care to which she is willing to commit. 5. Obtain collateral information. 6. Observe against the backdrop of the 96-hour hold. 21-day hold hearing initially scheduled for today but postponed till tomorrow secondary to him not being served 24 hours in advance of his hearing. PDMP PDMP Reviewed: Not Reviewed Involuntary Hold Information Hold Status: Legal Status: 96 Hour Hold Date/Time Hold Expires: 02/08/25 Attestations U Medical Necessity Statement*: Inpatient hospitalization is medically necessary and the clinically appropriate intervention at this time. We will monitor/initiate medications and make changes as indicated. Likely length of stay 4-6 days. Coding Level of Care Code Acute Code for [facility] Diagnoses Acute psychosis F23 Schizophrenia F20.9
[2025-02-11 14:00] VITALS: BP 138/81; PULSE 82; RESP 20; TEMP 36.6; O2SAT 100
[2025-02-11 20:30] VITALS: BP 102/66; PULSE 87; RESP 18; TEMP 36.5; O2SAT 97
[2025-02-11] MEDS: ATORVASTATIN 10 MG TABLET 40 MG PO (21:23)
[2025-02-12 05:22] VITALS: BP 112/73; PULSE 82; RESP 18; TEMP 36.5; O2SAT 100
[2025-02-12] MEDS: venlafaxine ER (24HR) 75 mg Capsule 225 MG PO (08:49)
[2025-02-12] MEDS: paliperidone ER 6 mg Tablet PO (08:49)
[2025-02-12] MEDS: multivitamin therapeutic Tablet 1 TAB PO (08:49)
--- NOTE | 2025-02-12 11:34 | NUR.SHIFT ---
Pt states that he was up all night, but he takes power naps and that is enough for him. He denies anxiety and depression. No reports of SI/HI. He endorses visual hallucinations, seeing ghosts. No pain reported. He is calm and cooperative on assessment.
[2025-02-12 14:00] VITALS: BP 163/106; PULSE 111; RESP 18; TEMP 36.6; O2SAT 99
--- NOTE | 2025-02-12 14:30 | W.PM.NPUPNS ---
Subjective NPU Subjective: Patient presented today reporting that he is doing okay. He was very anxious about the hearing and had seem to draw out some of his more paranoid and grandiose thought patterns. He was reporting that this medical writer did need to go to these hearings because they had no power over me. He endorsed that because were veterans there is nothing they can do and was going on and on about the maharaj that last being veterans creates that make us unstoppable. He continued to have anxiety about disposition as some information came forward that he may actually have to go back to [facility] nursing home at discharge. We discussed the most important thing currently do was that focused on his recovery and getting better and that in a better state of mind he will likely get better outcomes. He denied any side effects of his medication. Mental Status Exam MSE Comments: This is a slender well-developed white male looking older than his stated age with limited grooming and eye contact. Noteworthy scar on lip consistent with reports of cleft lip and palate. Absent dentition. No abnormal movements except for psychomotor agitation. Somewhat cooperative with exam and mild to moderate distress. Speech was slightly increased rate and normal volume with significant dysarthria. Mood described as having a tough time, affect congruent. Thought process organized. Thought content: Patient denied suicidal or homicidal ideation, there were no delusions reported but clear paranoid, grandiose and persecutory delusions noted, he denied any auditory or visual hallucinations. Denies current thoughts to hurt or kill self. Reports feeling like the most notorious killer in the area and mentions eliminating people at [facility], but denies current intent to harm others if returned to his brother. Denies hearing voices or seeing things. Exhibits delusional thinking, including beliefs about anthrax infection, being the last survivor, and having a significant impact on global events. Reports having experienced depression after service. Mentions stress related to perceived threats and responsibilities to protect family and community. Displays impaired reasoning with delusional beliefs and paranoia. Reports feeling fine as long as he can reach his brother. Attention and concentration were limited and memory was somewhat unreliable but not more formally tested. He is alert and oriented times person and place. Insight, judgment and impulse control impaired. Vitals/I&O/Wt Last Vital Signs Temp 97.8 F 02/12/25 14:00 Pulse 111 H 02/12/25 14:00 Resp 18 02/12/25 14:00 BP 163/106 02/12/25 14:00 Pulse Ox 99 02/12/25 14:00 O2 Del Method Room Air 02/12/25 14:00 Data NPU 02/04/25 18:01 02/04/25 18:01 A&P Assessment and plan 1. Acute psychosis: 2. Schizophrenia: Plan: Rosa is a 59-year-old white male with a long history of mental health and possibly [facility] who presents with erratic behavior which led to a 96-hour hold. Reports history of paranoid schizophrenia with symptoms including paranoia but without auditory hallucinations. Reports depression and anxiety following service and anthrax exposure but is unclear if we anthrax exposure is real or imagined. History of alcohol use disorder, currently in remission since 2010. History of cleft palate and cleft lip with associated speech and developmental delays. Multiple prior psychiatric hospitalizations. No current suicidal or homicidal ideation but he was quite threatening on admission. Plan Prescribed Invega to address mood and irrational thoughts. Recommended monitoring response to the medication to assess efficacy and tolerability. 1. Continue current medication. Initiated Invega 6 mg p.o. daily. Initiated Invega injection the loading dose so in the deltoid 224 mg IM.. 2. Discontinued one-to-one and started every 15 minute checks for safety. 3. Encourage individual, group and milieu therapy. 4. Encourage sober living treatment after discharge at the highest level care to which she is willing to commit. 5. Obtain collateral information. 6. Observe against the backdrop of the 96-hour hold. 21-day hold hearing initially scheduled for today but postponed till tomorrow secondary to him not being served 24 hours in advance of his hearing. 21-day hold hearing today 02/12/2025. PDMP PDMP Reviewed: Not Reviewed Involuntary Hold Information Hold Status: Legal Status: 21 Day Hold Date/Time Hold Expires: 03/05/2025 Attestations NPU Medical Necessity Statement*: Inpatient hospitalization is medically necessary and the clinically appropriate intervention at this time. We will monitor/initiate medications and make changes as indicated. Likely length of stay 4-6 days. Coding Level of Care Code Acute Code for [facility] Diagnoses Acute psychosis F23 Schizophrenia F20.9
--- NOTE | 2025-02-12 18:28 | PC.NURSE ---
Dr. Stovall v/o for Invega 156mg IM for 02/14/25.
[2025-02-12 19:51] VITALS: BP 132/83; PULSE 102; RESP 17; TEMP 37.1; O2SAT 98
[2025-02-12] MEDS: ATORVASTATIN 10 MG TABLET 40 MG PO (21:04)
[2025-02-13 06:00] VITALS: BP 148/95; PULSE 86; RESP 17; TEMP 36.5; O2SAT 98
[2025-02-13] MEDS: paliperidone ER 6 mg Tablet PO (08:15)
[2025-02-13] MEDS: venlafaxine ER (24HR) 75 mg Capsule 225 MG PO (08:15)
[2025-02-13] MEDS: multivitamin therapeutic Tablet 1 TAB PO (08:15)
--- NOTE | 2025-02-13 09:33 | NUR.SHIFT ---
When pt is asked how he slept last night he states, I rested . When asked if he is having any anxiety he states No, no anxiety, I am diverting problems. No depression noted. No reports of SI/HI or hallucinations. Pt cont to have delusions about a [employer] employee. He states that if one more person dies that employee will spend the rest of their life in [facility] for the rest of his life. He cont to say he is the last person with anthrax and when he dies if we cremate him then there will be no more anthrax left in the world. No pain reported. Pt is calm and pleasant on assessment.
--- NOTE | 2025-02-13 11:20 | PC.NURSE ---
Pt had a visitor show up from out of town and wasn't able to stay in town until visiting hours. He requested we make an exception. I spoke with Dr. Stovall and he stated if we could confirm that he was in fact from out of town we could let him visit. Visitor is from [place]. We have allowed him to come in for a 30 min visit. Security and [employer] have been notified.
[2025-02-13 14:00] VITALS: BP 190/109; PULSE 106; RESP 17; TEMP 36.5; O2SAT 100
--- NOTE | 2025-02-13 18:06 | P.NPUPN_ITS ---
Subjective NPU 2 Subjective: Patient presented today reporting that he is doing well on the medication. Patient continues to be intrusive per staff reports of direct observation but seems to have been improving insight on his intrusiveness. He was able to identify how his behaviors might affect his interactions with other people. He denied any other concerns and denied any side effects to the medication. Mental Status Exam 2 MSE Comments: This is a slender well-developed white male looking older than his stated age with limited grooming and eye contact. Noteworthy scar on lip consistent with reports of cleft lip and palate. Absent dentition. No abnormal movements except for psychomotor agitation. Somewhat cooperative with exam and mild to moderate distress. Speech was slightly increased rate and normal volume with significant dysarthria. Mood described as I am happy to be here, affect congruent. Thought process organized. Thought content: Patient denied suicidal or homicidal ideation, there were no delusions reported but clear paranoid, grandiose and persecutory delusions noted, he denied any auditory or visual hallucinations. Attention and concentration were limited and memory was somewhat unreliable but not more formally tested. He is alert and oriented times person and place. Insight, judgment and impulse control impaired. Vitals/I&O/Wt Last Vital Signs Temp 97.7 F 02/13/25 14:00 Pulse 106 H 02/13/25 14:00 Resp 17 02/13/25 14:00 BP 190/109 02/13/25 14:00 Pulse Ox 100 02/13/25 14:00 O2 Del Method Room Air 02/13/25 14:00 Data NPU 02/04/25 18:01 02/04/25 18:01 A&P Assessment and plan 1. Acute psychosis: 2. Schizophrenia: Plan: Rosa is a 59-year-old white male with a long history of mental health and possibly [facility] who presents with erratic behavior which led to a 96-hour hold. Reports history of paranoid schizophrenia with symptoms including paranoia but without auditory hallucinations. Reports depression and anxiety following service and anthrax exposure but is unclear if we anthrax exposure is real or imagined. History of alcohol use disorder, currently in remission since 2010. History of cleft palate and cleft lip with associated speech and developmental delays. Multiple prior psychiatric hospitalizations. No current suicidal or homicidal ideation but he was quite threatening on admission. Plan Prescribed Invega to address mood and irrational thoughts. Recommended monitoring response to the medication to assess efficacy and tolerability. 1. Continue current medication. Initiated Invega 6 mg p.o. daily. Initiated Invega injection the loading dose so in the deltoid 234 mg IM. Will get next loading dose in deltoid the next couple of days. 156 mg IM. 2. Discontinued one-to-one and started every 15 minute checks for safety. 3. Encourage individual, group and milieu therapy. 4. Encourage sober living treatment after discharge at the highest level care to which she is willing to commit. 5. Obtain collateral information. 6. Observe against the backdrop of the 96-hour hold. 21-day hold hearing initially scheduled for today but postponed till tomorrow secondary to him not being served 24 hours in advance of his hearing. 21-day hold hearing today 02/12/2025. PDMP PDMP Reviewed: Not Reviewed Involuntary Hold Information 2 Hold Status: Legal Status: 21 Day Hold Date/Time Hold Expires: 03/05/2025 Attestations NPU 2 Medical Necessity Statement*: Inpatient hospitalization is medically necessary and the clinically appropriate intervention at this time. We will monitor/initiate medications and make changes as indicated. Likely length of stay 3-5 days. Coding Level of Care Code Acute Code for [facility] Diagnoses Acute psychosis F23 Schizophrenia F20.9
[2025-02-13 20:01] VITALS: BP 151/84; PULSE 97; RESP 17; TEMP 36.6; O2SAT 99
[2025-02-13] MEDS: ATORVASTATIN 10 MG TABLET 40 MG PO (20:42)
[2025-02-14 06:00] VITALS: BP 151/88; PULSE 107; RESP 18; TEMP 36.7; O2SAT 100
[2025-02-14] MEDS: multivitamin therapeutic Tablet 1 TAB PO (08:10)
[2025-02-14] MEDS: paliperidone ER 9 mg Tablet PO (08:10)
[2025-02-14] MEDS: venlafaxine ER (24HR) 75 mg Capsule 225 MG PO (08:10)
--- NOTE | 2025-02-14 12:32 | PC.NURSE ---
Pharmacy called to let staff know they did not have the Invega inj today, but it would be here by tomorrow. Dr. Stovall informed and is ok with it.
[2025-02-14] MEDS: paliperidone palmitate 156 mg Syringe IM (13:05)
[2025-02-14 13:50] VITALS: BP 108/66; PULSE 92; RESP 18; TEMP 36.9; O2SAT 92
--- NOTE | 2025-02-14 14:46 | W.PM.NPUPNS ---
Subjective NPU Subjective: Patient presented today reporting that things are going all right. He reported that he is willing to stay as long as he takes to help him get better. He appears somewhat intrusive still per staff report and direct observation. Though he was not needing it redirected from the middle of other people's conversations today. He reports he is tolerating the injection and the increase in oral Invega to 9 mg p.o. daily after discussion of the risks, benefits and alternatives he understood and agreed to proceed as documented in this note. He denied any side effects of the medication and endorsed willingness to get that next injection when available. Mental Status Exam MSE Comments: This is a slender well-developed white male looking older than his stated age with limited grooming and eye contact. Noteworthy scar on lip consistent with reports of cleft lip and palate. Absent dentition. No abnormal movements except for psychomotor agitation. Somewhat cooperative with exam and mild to moderate distress. Speech was slightly increased rate and normal volume with significant dysarthria. Mood described as I am happy to be here, affect congruent. Thought process organized. Thought content: Patient denied suicidal or homicidal ideation, there were no delusions reported but clear paranoid, grandiose and persecutory delusions noted, he denied any auditory or visual hallucinations. Attention and concentration were limited and memory was somewhat unreliable but not more formally tested. He is alert and oriented times person and place. Insight, judgment and impulse control impaired. Vitals/I&O/Wt Last Vital Signs Temp 98.4 F 02/14/25 13:50 Pulse 92 02/14/25 13:50 Resp 18 02/14/25 13:50 BP 108/66 02/14/25 13:50 Pulse Ox 92 02/14/25 13:50 O2 Del Method Room Air 02/14/25 13:50 Data NPU 02/04/25 18:01 02/04/25 18:01 A&P Assessment and plan 1. Acute psychosis: 2. Schizophrenia: Plan: Rosa is a 59-year-old white male with a long history of mental health and possibly [facility] who presents with erratic behavior which led to a 96-hour hold. Reports history of paranoid schizophrenia with symptoms including paranoia but without auditory hallucinations. Reports depression and anxiety following service and anthrax exposure but is unclear if we anthrax exposure is real or imagined. History of alcohol use disorder, currently in remission since 2010. History of cleft palate and cleft lip with associated speech and developmental delays. Multiple prior psychiatric hospitalizations. No current suicidal or homicidal ideation but he was quite threatening on admission. Plan Prescribed Invega to address mood and irrational thoughts. Recommended monitoring response to the medication to assess efficacy and tolerability. 1. Continue current medication. Initiated Invega 6 mg p.o. daily. Initiated Invega injection the loading dose so in the deltoid 234 mg IM. Will get next loading dose in deltoid the next couple of days. 156 mg IM. Increase oral Invega to 9 mg p.o. daily 2. Discontinued one-to-one and started every 15 minute checks for safety. 3. Encourage individual, group and milieu therapy. 4. Encourage sober living treatment after discharge at the highest level care to which she is willing to commit. 5. Obtain collateral information. 6. Observe against the backdrop of the 96-hour hold. 21-day hold hearing initially scheduled for today but postponed till tomorrow secondary to him not being served 24 hours in advance of his hearing. 21-day hold hearing 02/12/2025. Patient now on 21-day hold. PDMP PDMP Reviewed: Not Reviewed Involuntary Hold Information Hold Status: Legal Status: 21 Day Hold Date/Time Hold Expires: 03/05/2025 Attestations NPU Medical Necessity Statement*: Inpatient hospitalization is medically necessary and the clinically appropriate intervention at this time. We will monitor/initiate medications and make changes as indicated. Likely length of stay 3-5 days. Coding Level of Care Code Acute Code for [facility] Diagnoses Acute psychosis F23 Schizophrenia F20.9
[2025-02-14] MEDS: ATORVASTATIN 10 MG TABLET 40 MG PO (21:14)
[2025-02-14 22:00] VITALS: BP 112/77; PULSE 108; RESP 18; TEMP 36.4; O2SAT 99
[2025-02-15 06:00] VITALS: BP 116/71; PULSE 83; RESP 17; TEMP 36.9; O2SAT 100
[2025-02-15] MEDS: paliperidone ER 9 mg Tablet PO (08:10)
[2025-02-15] MEDS: venlafaxine ER (24HR) 75 mg Capsule 225 MG PO (08:10)
[2025-02-15] MEDS: multivitamin therapeutic Tablet 1 TAB PO (08:12)
--- NOTE | 2025-02-15 09:40 | PC.NURSE ---
Patient approached the nurses station requesting a mental health cocktail be given to him when he goes home. He then proceeds to tell me that what happened at [facility] was preplanned. That his son and him have known about this for some time.
--- NOTE | 2025-02-15 13:00 | P.NPUPN_ITS ---
Subjective NPU 2 Subjective: Patient presented today reporting that he is doing fine at home. He is reporting that the sustainable design consultant's like to follow him at his brother back to their [facility] to verify some things. We discussed that it was our understanding that they might still be suggesting that he needs to come back to the [facility] with [facility] identifying these technically all furlough. He continues to report that the charges stem from 1 individual and that those charges will be dropped and that person will likely be fired. We discussed that we would need to follow the directives if they have an active injunction. We discussed the likelihood of discharge at the beginning of the week or sometime next week, but he reported that there were things that he needs to do that makes Tuesday the last viable day for him to be here. He denied any side effects to the medication. Mental Status Exam 2 MSE Comments: This is a slender well-developed white male looking older than his stated age with limited grooming and eye contact. Noteworthy scar on lip consistent with reports of cleft lip and palate. Absent dentition. No abnormal movements except for psychomotor agitation. Somewhat cooperative with exam and mild distress. Speech was slightly increased rate and normal volume with significant dysarthria and fairly animated. Mood described as I am happy to be here but I need to leave by Tuesday, affect euthymic. Thought process organized. Thought content: Patient denied suicidal or homicidal ideation, there were no delusions reported but clear paranoid, grandiose and persecutory delusions noted, he denied any auditory or visual hallucinations. Attention and concentration were limited and memory was somewhat unreliable but not more formally tested. He is alert and oriented times person and place. Insight, judgment and impulse control impaired. Vitals/I&O/Wt Last Vital Signs Temp 98.5 F 02/15/25 06:00 Pulse 83 02/15/25 06:00 Resp 17 02/15/25 06:00 BP 116/71 02/15/25 06:00 Pulse Ox 100 02/15/25 06:00 O2 Del Method Room Air 02/15/25 06:00 Data NPU 02/04/25 18:01 02/04/25 18:01 A&P Assessment and plan 1. Acute psychosis: 2. Schizophrenia: Plan: Rosa is a 59-year-old white male with a long history of [facility] and [facility] who presents with erratic behavior which led to a 96-hour hold. Reports history of paranoid schizophrenia with symptoms including paranoia but without auditory hallucinations. Reports depression and anxiety following service and anthrax exposure but is unclear if we anthrax exposure is real or imagined. History of alcohol use disorder, currently in remission since 2010. History of cleft palate and cleft lip with associated speech and developmental delays. Multiple prior psychiatric hospitalizations. No current suicidal or homicidal ideation but he was quite threatening on admission. Plan Prescribed Invega to address mood and irrational thoughts. Recommended monitoring response to the medication to assess efficacy and tolerability. 1. Continue current medication. Initiated Invega 6 mg p.o. daily. Initiated Invega injection the loading dose so in the deltoid 234 mg IM. Will get next loading dose in deltoid the next couple of days. 156 mg IM. Increase oral Invega to 9 mg p.o. daily. He received his second loading dose of Invega Sustenna on 02/14/2025 and will be due for his regular monthly dosing on 03/17/2025 234 mg IM. 2. Discontinued one-to-one and started every 15 minute checks for safety. 3. Encourage individual, group and milieu therapy. 4. Encourage sober living treatment after discharge at the highest level care to which she is willing to commit. 5. Obtain collateral information. 6. Observe against the backdrop of the 96-hour hold. 21-day hold hearing initially scheduled for today but postponed till tomorrow secondary to him not being served 24 hours in advance of his hearing. 21-day hold hearing 02/12/2025. Patient now on 21-day hold. PDMP PDMP Reviewed: Not Reviewed Involuntary Hold Information 2 Hold Status: Legal Status: 21 Day Hold Date/Time Hold Expires: 03/05/2025 Attestations NPU 2 Medical Necessity Statement*: Inpatient hospitalization is medically necessary and the clinically appropriate intervention at this time. We will monitor/initiate medications and make changes as indicated. Likely length of stay 3-5 days. Coding Level of Care Code Acute Code for [facility] Fwd Diagnoses Acute psychosis F23 Schizophrenia F20.9
[2025-02-15 14:00] VITALS: BP 105/66; PULSE 86; RESP 16; TEMP 36.6; O2SAT 100
[2025-02-15] MEDS: ATORVASTATIN 10 MG TABLET 40 MG PO (21:45)
[2025-02-15 22:00] VITALS: BP 98/62; PULSE 84; RESP 18; TEMP 36.6; O2SAT 98
[2025-02-16 06:00] VITALS: BP 94/66; PULSE 104; RESP 18; TEMP 37.1; O2SAT 95
[2025-02-16] MEDS: venlafaxine ER (24HR) 75 mg Capsule 225 MG PO (08:02)
[2025-02-16] MEDS: paliperidone ER 9 mg Tablet PO (08:02)
[2025-02-16] MEDS: multivitamin therapeutic Tablet 1 TAB PO (08:03)
[2025-02-16 12:53] VITALS: BP 99/61; PULSE 82; RESP 16; TEMP 36.5; O2SAT 100
--- NOTE | 2025-02-16 17:39 | P.NPUPN_ITS ---
Subjective NPU 2 Subjective: Patient presented today reporting that he is doing all right. He was able to identify that the [facility] and[facility]or [facility] would be picking him up at discharge and identified that they have the stuff that he needs to go through the process to get his stuff back. He continued to feel some confidence that the charges will not create as bad situation as he was originally worried about. He endorsed that the medication has really been helpful. And he got his second injection. We discussed the likelihood of discharge at the beginning of the week. He denied any side effects to his medication. Mental Status Exam 2 MSE Comments: This is a slender well-developed white male looking older than his stated age with limited grooming and eye contact. Noteworthy scar on lip consistent with reports of cleft lip and palate. Absent dentition. No abnormal movements except for psychomotor agitation. Somewhat cooperative with exam and mild distress. Speech was slightly increased rate and normal volume with significant dysarthria and fairly animated. Mood described as I am happy to be here but I need to leave by Tuesday, affect euthymic. Thought process organized. Thought content: Patient denied suicidal or homicidal ideation, there were no delusions reported but clear paranoid, grandiose and persecutory delusions noted, he denied any auditory or visual hallucinations. Attention and concentration were limited and memory was somewhat unreliable but not more formally tested. He is alert and oriented times person and place. Insight, judgment and impulse control impaired. Vitals/I&O/Wt Last Vital Signs Temp 97.7 F 02/16/25 12:49 Pulse 82 02/16/25 12:49 Resp 16 02/16/25 12:49 BP 99/61 02/16/25 12:49 Pulse Ox 100 02/16/25 12:49 O2 Del Method Room Air 02/16/25 12:49 Weight last 48 hrs Weight 62.142 kg Data NPU 02/04/25 18:01 02/04/25 18:01 A&P Assessment and plan 1. Acute psychosis: 2. Schizophrenia: Plan: Rosa is a 59-year-old white male with a long history of mental health and possibly [facility] who presents with erratic behavior which led to a 96-hour hold. Reports history of paranoid schizophrenia with symptoms including paranoia but without auditory hallucinations. Reports depression and anxiety following service and anthrax exposure but is unclear if we anthrax exposure is real or imagined. History of alcohol use disorder, currently in remission since 2010. History of cleft palate and cleft lip with associated speech and developmental delays. Multiple prior psychiatric hospitalizations. No current suicidal or homicidal ideation but he was quite threatening on admission. Plan Prescribed Invega to address mood and irrational thoughts. Recommended monitoring response to the medication to assess efficacy and tolerability. 1. Continue current medication. Initiated Invega 6 mg p.o. daily. Initiated Invega injection the loading dose so in the deltoid 234 mg IM. Will get next loading dose in deltoid the next couple of days. 156 mg IM. Increase oral Invega to 9 mg p.o. daily. He received his second loading dose of Invega Sustenna on 02/14/2025 and will be due for his regular monthly dosing on 03/17/2025 234 mg IM. 2. Discontinued one-to-one and started every 15 minute checks for safety. 3. Encourage individual, group and milieu therapy. 4. Encourage sober living treatment after discharge at the highest level care to which she is willing to commit. 5. Obtain collateral information. 6. Observe against the backdrop of the 96-hour hold. 21-day hold hearing initially scheduled for today but postponed till tomorrow secondary to him not being served 24 hours in advance of his hearing. 21-day hold hearing 02/12/2025. Patient now on 21-day hold. PDMP PDMP Reviewed: Not Reviewed Involuntary Hold Information 2 Hold Status: Legal Status: 21 Day Hold Date/Time Hold Expires: 03/05/2025 Attestations NPU 2 Medical Necessity Statement*: Inpatient hospitalization is medically necessary and the clinically appropriate intervention at this time. We will monitor/initiate medications and make changes as indicated. Likely length of stay 2-4 days. Coding Level of Care Code Acute Code for [facility] Fwd Diagnoses Acute psychosis F23 Schizophrenia F20.9
[2025-02-16] MEDS: ATORVASTATIN 10 MG TABLET 40 MG PO (20:25)
[2025-02-16 21:12] VITALS: BP 103/63; PULSE 91; RESP 17; TEMP 36.5; O2SAT 100
[2025-02-17 05:36] VITALS: BMI 21.4
[2025-02-17 05:51] VITALS: BP 106/67; PULSE 98; RESP 17; TEMP 36.7; O2SAT 99
[2025-02-17] MEDS: paliperidone ER 9 mg Tablet PO (08:31)
[2025-02-17] MEDS: multivitamin therapeutic Tablet 1 TAB PO (08:31)
[2025-02-17] MEDS: venlafaxine ER (24HR) 75 mg Capsule 225 MG PO (08:31)
[2025-02-17 08:34] VITALS: BP 128/74; PULSE 72
[2025-02-17 13:28] VITALS: BP 114/70; PULSE 96; RESP 14; TEMP 36.6; O2SAT 99
--- NOTE | 2025-02-17 18:04 | W.PM.NPUPNS ---
Subjective NPU Subjective: Patient presented today reporting things are going well. He continues to show slow improvement per staff reports and direct observation. He continues to be aware that he will be getting a ride back to his community with the electroencephalographic technician's department and that we would certainly be supportive of them understanding that certainly was having psychosis when the incident at [facility] occurred and that he has not had marked improvement on medication and does not want a long-acting injectable that might help his cause. He denied any side effects of medication. Mental Status Exam MSE Comments: This is a slender well-developed white male looking older than his stated age with limited grooming and eye contact. Noteworthy scar on lip consistent with reports of cleft lip and palate. Absent dentition. No abnormal movements except for psychomotor agitation. Somewhat cooperative with exam and mild distress. Speech was slightly increased rate and normal volume with significant dysarthria and fairly animated. Mood described as I am happy to be here but I need to leave by Tuesday, affect euthymic. Thought process organized. Thought content: Patient denied suicidal or homicidal ideation, there were no delusions reported but clear paranoid, grandiose and persecutory delusions noted, he denied any auditory or visual hallucinations. Attention and concentration were limited and memory was somewhat unreliable but not more formally tested. He is alert and oriented times person and place. Insight, judgment and impulse control impaired. Vitals/I&O/Wt Last Vital Signs Temp 98.6 F 02/17/25 19:55 Pulse 93 02/17/25 19:55 Resp 18 02/17/25 19:55 BP 101/64 02/17/25 19:55 Pulse Ox 99 02/17/25 19:55 O2 Del Method Room Air 02/17/25 19:55 Weight last 48 hrs Weight 62.142 kg Data NPU 02/04/25 18:01 02/04/25 18:01 A&P Assessment and plan 1. Acute psychosis: 2. Schizophrenia: Plan: Thjames is a 59-year-old white male with a long history of mental health and possibly [facility] who presents with erratic behavior which led to a 96-hour hold. Reports history of paranoid schizophrenia with symptoms including paranoia but without auditory hallucinations. Reports depression and anxiety following service and anthrax exposure but is unclear if we anthrax exposure is real or imagined. History of alcohol use disorder, currently in remission since 2010. History of cleft palate and cleft lip with associated speech and developmental delays. Multiple prior psychiatric hospitalizations. No current suicidal or homicidal ideation but he was quite threatening on admission. Plan Prescribed Invega to address mood and irrational thoughts. Recommended monitoring response to the medication to assess efficacy and tolerability. 1. Continue current medication. Initiated Invega 6 mg p.o. daily. Initiated Invega injection the loading dose so in the deltoid 234 mg IM. Will get next loading dose in deltoid the next couple of days. 156 mg IM. Increase oral Invega to 9 mg p.o. daily. He received his second loading dose of Invega Sustenna on 02/14/2025 and will be due for his regular monthly dosing on 03/17/2025 234 mg IM. 2. Discontinued one-to-one and started every 15 minute checks for safety. 3. Encourage individual, group and milieu therapy. 4. Encourage sober living treatment after discharge at the highest level care to which she is willing to commit. 5. Obtain collateral information. 6. Observe against the backdrop of the 96-hour hold. 21-day hold hearing initially scheduled for today but postponed till tomorrow secondary to him not being served 24 hours in advance of his hearing. 21-day hold hearing 02/12/2025. Patient now on 21-day hold. PDMP PDMP Reviewed: Not Reviewed Involuntary Hold Information Hold Status: Legal Status: 21 Day Hold Date/Time Hold Expires: 03/05/2025 Attestations NPU Medical Necessity Statement*: Inpatient hospitalization is medically necessary and the clinically appropriate intervention at this time. We will monitor/initiate medications and make changes as indicated. Likely length of stay 1-3 days. Coding Level of Care Code Acute Code for [facility] Fwd Diagnoses Acute psychosis F23 Schizophrenia F20.9
[2025-02-17 19:55] VITALS: BP 101/64; PULSE 93; RESP 18; TEMP 37; O2SAT 99
[2025-02-17] MEDS: ATORVASTATIN 10 MG TABLET 40 MG PO (20:17)
[2025-02-18 06:00] VITALS: BP 92/54; PULSE 75; RESP 18; TEMP 37.1; O2SAT 100
[2025-02-18] MEDS: multivitamin therapeutic Tablet 1 TAB PO (08:49)
[2025-02-18] MEDS: paliperidone ER 9 mg Tablet PO (08:49)
[2025-02-18] MEDS: venlafaxine ER (24HR) 75 mg Capsule 225 MG PO (08:49)
[2025-02-18 13:35] VITALS: BP 106/64; PULSE 105; RESP 17; TEMP 37.1; O2SAT 99
--- NOTE | 2025-02-18 17:54 | P.NPUPN_ITS ---
Subjective NPU 2 Subjective: 59-year-old male with schizophrenia repo rting that he has been feeling better currently on his medications. The patient had been less distracted by his thoughts. He had reported that he had been a victim of a simple misunderstanding at [facility]. He had reported that he had significant legal issues from this recent hospitalization. He had continued to report that he was somehow infected with anthrax. Mental Status Exam 2 MSE Comments: This is a slender well-developed white male looking older than his stated age with limited grooming and eye contact. Noteworthy scar on lip consistent with reports of cleft lip and palate. Absent dentition. No abnormal movements except for psychomotor agitation. He was cooperative with exam and mild distress. Speech was slightly increased in rate and normal volume with significant dysarthria and fairly animated. Mood described as i am feeling better. His affect was somewhat odd. Thought process was linear and organized. Thought content: Patient denied suicidal or homicidal ideation, There were no delusions reported but clear paranoid, grandiose and persecutory delusions appreciated. He denied any auditory or visual hallucinations and did not appear to be responding to internal stimuli. Attention and concentration were limited and memory was somewhat unreliable but not more formally tested. He is alert and oriented to person, place and time. Insight, judgment were poor. His impulse control was limited. Vitals/I&O/Wt Last Vital Signs Temp 98.7 F 02/18/25 13:35 Pulse 105 H 02/18/25 13:35 Resp 17 02/18/25 13:35 BP 106/64 02/18/25 13:35 Pulse Ox 99 02/18/25 13:35 O2 Del Method Room Air 02/18/25 13:35 Weight last 48 hrs Weight 62.142 kg Data NPU 02/04/25 18:01 02/04/25 18:01 A&P Assessment and plan 1. Acute psychosis: 2. Schizophrenia: Plan: Thjames is a 59-year-old white male with a long history of mental health and possibly [facility] who presents with erratic behavior which led to a 96-hour hold. Reports history of paranoid schizophrenia with symptoms including paranoia but without auditory hallucinations. Reports depression and anxiety following service and anthrax exposure but is unclear if we anthrax exposure is real or imagined. History of alcohol use disorder, currently in remission since 2010. History of cleft palate and cleft lip with associated speech and developmental delays. Multiple prior psychiatric hospitalizations. No current suicidal or homicidal ideation but he was quite threatening on admission. Plan Prescribed Invega to address mood and irrational thoughts. Recommended monitoring response to the medication to assess efficacy and tolerability. 1. Continue current medication. Initiated Invega 6 mg p.o. daily. Initiated Invega injection the loading dose so in the deltoid 234 mg IM. Will get next loading dose in deltoid the next couple of days. 156 mg IM. Increase oral Invega to 9 mg p.o. daily. He received his second loading dose of Invega Sustenna on 02/14/2025 and will be due for his regular monthly dosing on 03/17/2025 234 mg IM. 2. Discontinued one-to-one and started every 15 minute checks for safety. 3. Encourage individual, group and milieu therapy. 4. Encourage sober living treatment after discharge at the highest level care to which she is willing to commit. 5. Obtain collateral information. 6. Observe against the backdrop of the 96-hour hold. 21-day hold hearing initially scheduled for today but postponed till tomorrow secondary to him not being served 24 hours in advance of his hearing. 21-day hold hearing 02/12/2025. Patient now on 21-day hold. PDMP PDMP Reviewed: Not Reviewed Involuntary Hold Information 2 Hold Status: Legal Status: 21 Day Hold Date/Time Hold Expires: 03/05/2025 Attestations NPU 2 Medical Necessity Statement*: Inpatient hospitalization is medically necessary and the clinically appropriate intervention at this time. We will monitor/initiate medications and make changes as indicated. Likely length of stay 4-6 days. Coding Level of Care Code Acute Code for [facility] Fwd Diagnoses Acute psychosis F23 Schizophrenia F20.9
[2025-02-18 20:11] VITALS: BP 116/80; PULSE 99; RESP 18; TEMP 36.3; O2SAT 99
[2025-02-18] MEDS: ATORVASTATIN 10 MG TABLET 40 MG PO (20:43)
[2025-02-19 06:00] VITALS: BP 94/58; PULSE 90; RESP 16; TEMP 36.7; O2SAT 99
[2025-02-19] MEDS: paliperidone ER 9 mg Tablet PO (08:36)
[2025-02-19] MEDS: venlafaxine ER (24HR) 75 mg Capsule 225 MG PO (08:36)
[2025-02-19] MEDS: multivitamin therapeutic Tablet 1 TAB PO (08:36)
[2025-02-19 13:55] VITALS: BP 123/69; PULSE 80; RESP 16; TEMP 36.4; O2SAT 100
--- NOTE | 2025-02-19 16:27 | P.NPUPN_ITS ---
Subjective NPU 2 Subjective: 59-year-old male with schizophrenia admi tted with bizarre thinking and behavior. The patient continued to ruminate about leaving here. He had reported that he did not need any further help. He had reported that he continued to be hesitant about speaking with others and stated that several people here may be exposed to anthrax. He had refused to touch others as he had stated that he may poison someone through his touch. He had stated that he had not made threats to [employer] and had never been in any legal trouble in the past. He did report having difficulties with trusting others. He had stated that he had been diagnosed with schizophrenia in the past. Mental Status Exam 2 MSE Comments: This is a slender well-developed white male looking older than his stated age with limited grooming and eye contact. Noteworthy scar on lip consistent with reports of cleft lip and palate. Absent dentition. No abnormal movements except for psychomotor agitation. He was cooperative with exam and mild distress. Speech was slightly increased in rate and normal volume with significant dysarthria and fairly animated. Mood described as i am feeling better. His affect was somewhat odd. Thought process was linear and organized. Thought content: Patient denied suicidal or homicidal ideation, There were clear paranoid, grandiose and persecutory delusions appreciated. He denied any auditory or visual hallucinations and did not appear to be responding to internal stimuli. Attention and concentration were limited and memory was somewhat unreliable but not more formally tested. He is alert and oriented to person, place and time. Insight, judgment were poor. His impulse control was limited. Vitals/I&O/Wt Last Vital Signs Temp 97.5 F L 02/19/25 13:55 Pulse 80 02/19/25 13:55 Resp 16 02/19/25 13:55 BP 123/69 02/19/25 13:55 Pulse Ox 100 02/19/25 13:55 O2 Del Method Room Air 02/19/25 13:55 Data NPU 02/04/25 18:01 02/04/25 18:01 A&P Assessment and plan 1. Acute psychosis: 2. Schizophrenia: Plan: Thjames is a 59-year-old white male with a long history of mental health and possibly [facility] who presents with erratic behavior which led to a 96-hour hold. Reports history of paranoid schizophrenia with symptoms including paranoia but without auditory hallucinations. Reports depression and anxiety following service and anthrax exposure but is unclear if we anthrax exposure is real or imagined. History of alcohol use disorder, currently in remission since 2010. History of cleft palate and cleft lip with associated speech and developmental delays. Multiple prior psychiatric hospitalizations. No current suicidal or homicidal ideation but he was quite threatening on admission. Plan Prescribed Invega to address mood and irrational thoughts. Recommended monitoring response to the medication to assess efficacy and tolerability. 1. Continue current medication. Initiated Invega 6 mg p.o. daily. Initiated Invega injection the loading dose so in the deltoid 234 mg IM. Will get next loading dose in deltoid the next couple of days. 156 mg IM. Increase oral Invega to 9 mg p.o. daily. He received his second loading dose of Invega Sustenna on 02/14/2025 and will be due for his regular monthly dosing on 03/17/2025 234 mg IM. 2. Discontinued one-to-one and started every 15 minute checks for safety. 3. Encourage individual, group and milieu therapy. 4. Encourage sober living treatment after discharge at the highest level care to which she is willing to commit. 5. Obtain collateral information. 6. Patient now on 21-day hold. PDMP PDMP Reviewed: Not Reviewed Involuntary Hold Information 2 Hold Status: Legal Status: 21 Day Hold Date/Time Hold Expires: 03/05/2025 Attestations NPU 2 Medical Necessity Statement*: Inpatient hospitalization is medically necessary and the clinically appropriate intervention at this time. We will monitor/initiate medications and make changes as indicated. The patient's likely length of stay is 4-6 days. Coding Level of Care Code Acute Code for [facility] Fwd Diagnoses Acute psychosis F23 Schizophrenia F20.9
[2025-02-19 19:34] VITALS: BP 117/64; PULSE 93; RESP 16; TEMP 36.6; O2SAT 97
[2025-02-19] MEDS: ATORVASTATIN 10 MG TABLET 40 MG PO (19:56)
[2025-02-20 06:00] VITALS: BP 128/71; PULSE 84; RESP 16; TEMP 36.7; O2SAT 99
[2025-02-20] MEDS: multivitamin therapeutic Tablet 1 TAB PO (09:25)
[2025-02-20] MEDS: paliperidone ER 9 mg Tablet PO (09:25)
[2025-02-20] MEDS: venlafaxine ER (24HR) 75 mg Capsule 225 MG PO (09:25)
--- NOTE | 2025-02-20 10:28 | NUR.SHIFT ---
Pt states that he slept good last night. Rates his anxiety a 5/10 and depression 0/10. No reports of SI/HI or hallucinations. No pain reported. He is calm and cooperative on assessment.
--- NOTE | 2025-02-20 13:39 | P.NPUPN_ITS ---
Subjective NPU 2 Subjective: 59-year-old male with schizophrenia admi tted with bizarre thinking and behavior. The patient had reported that he was feeling better. He had reported that he had chronic paranoia attributed to his schizophrenia. He had reported that he had felt comfortable about seeking a tire classifier as he had significant charges now against him for reported acts of terrorism. The patient had reported that he had no prior legal issues and had no desire to harm anyone. He had reported that he had been without his psychotropic medicines for several weeks and this had led to his breakdown here. He had denied any auditory or visual hallucinations currently. He had been redirectable on the milieu. He had reported having struggles with trusting others. He had been compliant and redirectable on the milieu. Mental Status Exam 2 MSE Comments: This is a slender well-developed white male looking older than his stated age with limited grooming and eye contact. Noteworthy scar on lip consistent with reports of cleft lip and palate. Absent dentition. No abnormal involuntary motor movements appreciated today. He was cooperative with exam and in no acute distress. Mood described as better. His affect was blunted. Thought process was linear, logical and organized. Thought content: Patient denied suicidal or homicidal ideation, There was signficant decrease in paranoia with no overt delusions. He denied any auditory or visual hallucinations and did not appear to be responding to internal stimuli. Attention and concentration were fair. Recent and remote memory appeared better today. He is alert and oriented to person, place and time. Insight was improving. His judgment was poor. His impulse control was limited. Vitals/I&O/Wt Last Vital Signs Temp 98.1 F 02/20/25 06:00 Pulse 84 02/20/25 06:00 Resp 16 02/20/25 06:00 BP 128/71 02/20/25 06:00 Pulse Ox 99 02/20/25 06:00 O2 Del Method Room Air 02/20/25 06:00 Data NPU 02/04/25 18:01 02/04/25 18:01 A&P Assessment and plan 1. Acute psychosis: 2. Schizophrenia: Plan: Rosa is a 59-year-old white male with a long history of [facility] and [facility] who presents with erratic behavior which led to a 96-hour hold. Reports history of paranoid schizophrenia with symptoms including paranoia but without auditory hallucinations. Reports depression and anxiety following service and anthrax exposure but is unclear if we anthrax exposure is real or imagined. History of alcohol use disorder, currently in remission since 2010. History of cleft palate and cleft lip with associated speech and developmental delays. Multiple prior psychiatric hospitalizations. No current suicidal or homicidal ideation but he was quite threatening on admission. Plan Prescribed Invega to address mood and irrational thoughts. Recommended monitoring response to the medication to assess efficacy and tolerability. 1. Continue current medication. Initiated Invega 6 mg p.o. daily. Initiated Invega injection the loading dose so in the deltoid 234 mg IM. Will get next loading dose in deltoid the next couple of days. 156 mg IM. He received his second loading dose of Invega Sustenna on 02/14/2025 and will be due for his regular monthly dosing on 03/17/2025 234 mg IM. Continue Seroquel 200mg at night along with Invega 9mg daily. 2. Discontinued one-to-one and started every 15 minute checks for safety. 3. Encourage individual, group and milieu therapy. 4. Encourage sober living treatment after discharge at the highest level care to which she is willing to commit. 5. Obtain collateral information. 6. Patient now on 21-day hold. PDMP PDMP Reviewed: Not Reviewed Involuntary Hold Information 2 Hold Status: Legal Status: 21 Day Hold Date/Time Hold Expires: 03/05/2025 Attestations NPU 2 Medical Necessity Statement*: Inpatient hospitalization is medically necessary and the clinically appropriate intervention at this time. We will monitor/initiate medications and make changes as indicated. The patient's likely length of stay is 4-6 days. Coding Level of Care Code Acute Code for [facility] Fwd Diagnoses Acute psychosis F23 Schizophrenia F20.9
[2025-02-20 14:00] VITALS: BP 132/81; PULSE 88; RESP 15; TEMP 36.8; O2SAT 100
[2025-02-20 19:32] VITALS: BP 150/55; PULSE 107; RESP 17; TEMP 37.2; O2SAT 97
[2025-02-20] MEDS: ATORVASTATIN 10 MG TABLET 40 MG PO (20:18)
[2025-02-21 06:00] VITALS: BP 128/64; PULSE 80; RESP 16; TEMP 36.5; O2SAT 99
--- NOTE | 2025-02-21 07:49 | PC.NURSE ---
Pt reports on assessment that he has minimal anxiwt
[2025-02-21] MEDS: paliperidone ER 9 mg Tablet PO (08:23)
[2025-02-21] MEDS: multivitamin therapeutic Tablet 1 TAB PO (08:23)
[2025-02-21] MEDS: venlafaxine ER (24HR) 75 mg Capsule 225 MG PO (08:23)
[2025-02-21 14:00] VITALS: BP 127/80; PULSE 70; RESP 19; TEMP 36.6; O2SAT 97
[2025-02-21 20:23] VITALS: BP 118/75; PULSE 82; RESP 18; TEMP 36.5; O2SAT 100
[2025-02-21] MEDS: ATORVASTATIN 10 MG TABLET 40 MG PO (20:44)
[2025-02-22 06:00] VITALS: BP 89/55; PULSE 87; RESP 17; TEMP 36.8; O2SAT 100
[2025-02-22] MEDS: multivitamin therapeutic Tablet 1 TAB PO (08:31)
[2025-02-22] MEDS: venlafaxine ER (24HR) 75 mg Capsule 225 MG PO (08:31)
[2025-02-22] MEDS: paliperidone ER 9 mg Tablet PO (08:33)
[2025-02-22 14:00] VITALS: BP 108/69; PULSE 108; RESP 16; TEMP 36.6; O2SAT 100
--- NOTE | 2025-02-22 16:28 | P.NPUPN_ITS ---
Subjective NPU 2 Subjective: 59-year-old male with schizophrenia admi tted with bizarre thinking and behavior. The patient had appeared more focused. He had been less preoccupied by any unusual thoughts. He had stated that he did not recall making any terroristic threats at [facility]. He had stated that he had not been on his medications for several months when the unfortunate event occurred. He had expressed concern about returning to [facility]. He had not endorsed any thoughts of hurting himself or others here. He was pleasant and cooperative on the milieu and was redirectable. He reported no side effects from his medication regimen. Mental Status Exam 2 MSE Comments: This is a slender well-developed white male looking older than his stated age with limited grooming and eye contact. Noteworthy scar on lip consistent with reports of cleft lip and palate. Absent dentition. No abnormal involuntary motor movements appreciated today. He was cooperative with exam and in no acute distress. Mood described as good. His affect was slightly restricted. Thought process was linear, logical and organized. Thought content: Patient denied suicidal or homicidal ideation, There was signficant decrease in paranoia with no overt delusions. He denied any auditory or visual hallucinations and did not appear to be responding to internal stimuli. Attention and concentration were fair. Recent and remote memory appeared better today. He is alert and oriented to person, place and time. Insight was improving. His judgment was improving. His impulse control was fair. Vitals/I&O/Wt Last Vital Signs Temp 97.9 F 02/22/25 14:00 Pulse 108 H 02/22/25 14:00 Resp 16 02/22/25 14:00 BP 108/69 02/22/25 14:00 Pulse Ox 100 02/22/25 14:00 O2 Del Method Room Air 02/22/25 14:00 Data NPU 02/04/25 18:01 02/04/25 18:01 A&P Assessment and plan 1. Acute psychosis: 2. Schizophrenia: Plan: Rosa is a 59-year-old white male with a long history of mental [facility] and possibly [facility] who presents with erratic behavior which led to a 96-hour hold. Reports history of paranoid schizophrenia with symptoms including paranoia but without auditory hallucinations. Reports depression and anxiety following service and anthrax exposure but is unclear if we anthrax exposure is real or imagined. History of alcohol use disorder, currently in remission since 2010. History of cleft palate and cleft lip with associated speech and developmental delays. Multiple prior psychiatric hospitalizations. No current suicidal or homicidal ideation but he was quite threatening on admission. Plan Prescribed Invega to address mood and irrational thoughts. Recommended monitoring response to the medication to assess efficacy and tolerability. 1. Continue current medication. Initiated Invega injection the loading dose so in the deltoid 234 mg IM. Will get next loading dose in deltoid the next couple of days. 156 mg IM. He received his second loading dose of Invega Sustenna on 02/14/2025 and will be due for his regular monthly dosing on 03/17/2025 234 mg IM. Continue Seroquel 200mg at night along with reduction in invega to 6mg daily with plan to discontinue invega in 5-7 days. 2. Discontinued one-to-one and started every 15 minute checks for safety. 3. Encourage individual, group and milieu therapy. 4. Encourage sober living treatment after discharge at the highest level care to which she is willing to commit. 5. Obtain collateral information. 6. Patient now on 21-day hold. PDMP PDMP Reviewed: Not Reviewed Involuntary Hold Information 2 Hold Status: Legal Status: 21 Day Hold Date/Time Hold Expires: 03/05/2025 Attestations NPU 2 Medical Necessity Statement*: Inpatient hospitalization is medically necessary and the clinically appropriate intervention at this time. We will monitor/initiate medications and make changes as indicated. The patient's likely length of stay is 6-8 days. Coding Level of Care Code Acute Code for [facility] Fwd Diagnoses Acute psychosis F23 Schizophrenia F20.9
[2025-02-22 20:17] VITALS: BP 129/79; PULSE 69; RESP 18; TEMP 36.4; O2SAT 100
[2025-02-22] MEDS: ATORVASTATIN 10 MG TABLET 40 MG PO (20:17)
[2025-02-23 06:00] VITALS: BP 105/64; PULSE 72; RESP 18; TEMP 36.4; O2SAT 99
[2025-02-23] MEDS: multivitamin therapeutic Tablet 1 TAB PO (08:25)
[2025-02-23] MEDS: venlafaxine ER (24HR) 75 mg Capsule 225 MG PO (08:25)
--- NOTE | 2025-02-23 11:45 | P.NPUPN_ITS ---
Subjective NPU 2 Subjective: 59-year-old male with schizophrenia admi tted with bizarre thinking and behavior. The patient had reported that he was feeling better. He reported no side effects from his medication regimen. He had stated that he was hopeful about returning home but understood that he would be going back to [facility] upon his discharge. The patient had no side effects from his medication regimen. He reported no thoughts of suicide. He had expressed minimal paranoia and did not report about thoughts of wanting to hurt himself or others with no ideas of being part of a plot endorsed today. Mental Status Exam 2 MSE Comments: This is a slender well-developed white male looking older than his stated age with limited grooming and eye contact. Noteworthy scar on lip consistent with reports of cleft lip and palate. Absent dentition. No abnormal involuntary motor movements appreciated today. He was cooperative with exam and in no acute distress. Mood described as good. His affect was blunted. Thought process was linear, logical and organized. Thought content: Patient denied suicidal or homicidal ideation, There was significant decrease in paranoia with no overt delusions. He denied any auditory or visual hallucinations and did not appear to be responding to internal stimuli. Attention and concentration were fair. Recent and remote memory appeared better today. He is alert and oriented to person, place and time. Insight was improving. His judgment was improving. His impulse control was fair. Vitals/I&O/Wt Last Vital Signs Temp 97.5 F L 02/23/25 06:00 Pulse 72 02/23/25 06:00 Resp 18 02/23/25 06:00 BP 105/64 02/23/25 06:00 Pulse Ox 99 02/23/25 06:00 O2 Del Method Room Air 02/23/25 06:00 Data NPU 02/04/25 18:01 02/04/25 18:01 A&P Assessment and plan 1. Acute psychosis: 2. Schizophrenia: Plan: Rosa is a 59-year-old white male with a long history of mental health and possibly [facility] who presents with erratic behavior which led to a 96-hour hold. Reports history of paranoid schizophrenia with symptoms including paranoia but without auditory hallucinations. Reports depression and anxiety following service and anthrax exposure but is unclear if we anthrax exposure is real or imagined. History of alcohol use disorder, currently in remission since 2010. History of cleft palate and cleft lip with associated speech and developmental delays. Multiple prior psychiatric hospitalizations. No current suicidal or homicidal ideation but he was quite threatening on admission. Plan Prescribed Invega to address mood and irrational thoughts. Recommended monitoring response to the medication to assess efficacy and tolerability. 1. Continue current medication. Initiated Invega injection the loading dose so in the deltoid 234 mg IM. Will get next loading dose in deltoid the next couple of days. 156 mg IM. He received his second loading dose of Invega Sustenna on 02/14/2025 and will be due for his regular monthly dosing on 03/17/2025 234 mg IM. Continue Seroquel 200mg at night along with reduction in invega to 6mg daily with plan to discontinue invega in 5-7 days. Patient per previous records had been on seroquel 400mg at night with invega 234mg monthly prior to running out of his medications. 2. Discontinued one-to-one and started every 15 minute checks for safety. 3. Encourage individual, group and milieu therapy. 4. Encourage sober living treatment after discharge at the highest level care to which she is willing to commit. 5. Obtain collateral information. 6. Patient now on 21-day hold. PDMP PDMP Reviewed: Not Reviewed Involuntary Hold Information 2 Hold Status: Legal Status: 21 Day Hold Date/Time Hold Expires: 03/05/2025 Attestations NPU 2 Medical Necessity Statement*: Inpatient hospitalization is medically necessary and the clinically appropriate intervention at this time. We will monitor/initiate medications and make changes as indicated. The patient's likely length of stay is 6-8 days. Coding Level of Care Code Acute Code for [facility] Fwd Diagnoses Acute psychosis F23 Schizophrenia F20.9
[2025-02-23] MEDS: paliperidone ER 6 mg Tablet PO (11:47)
[2025-02-23 14:00] VITALS: BP 115/72; PULSE 89; RESP 16; TEMP 36.7; O2SAT 100
[2025-02-23 20:17] VITALS: BP 99/57; PULSE 72; RESP 17; TEMP 36.7; O2SAT 99
[2025-02-23] MEDS: ATORVASTATIN 10 MG TABLET 40 MG PO (20:46)
[2025-02-24 05:54] VITALS: BMI 21.9
[2025-02-24 06:00] VITALS: BP 100/59; PULSE 83; RESP 18; TEMP 36.5; O2SAT 100
[2025-02-24] MEDS: venlafaxine ER (24HR) 75 mg Capsule 225 MG PO (08:26)
[2025-02-24] MEDS: paliperidone ER 6 mg Tablet PO (08:26)
[2025-02-24] MEDS: multivitamin therapeutic Tablet 1 TAB PO (08:27)
--- NOTE | 2025-02-24 11:41 | P.NPUPN_ITS ---
Subjective NPU 2 Subjective: 59-year-old male with schizophrenia admi tted with bizarre thinking and behavior. Reported a feeling better. He had reported adequate sleep. He had not been engaged in any unusual behavior here on the unit. He was redirectable. He remained hopeful about possibly not going to [facility] and wished to somehow contact his insurance defense attorney. He had reported no thoughts of harming others. The patient reported no concerns about people being exposed to any viruses or pathogens. Mental Status Exam 2 MSE Comments: This is a slender well-developed white male looking older than his stated age with limited grooming and eye contact. Noteworthy scar on lip consistent with reports of cleft lip and palate. Absent dentition. No abnormal involuntary motor movements appreciated today. He was cooperative with exam and in no acute distress. Mood described as good. His affect was blunted. Thought process was linear, logical and goal directed. Thought content: Patient denied suicidal or homicidal ideation, There was significant decrease in paranoia with no overt delusions. He denied any auditory or visual hallucinations and did not appear to be responding to internal stimuli. Attention and concentration were fair. Recent and remote memory appeared grossly intact. He is alert and oriented to person, place and time. Insight was improving. His judgment was improving. His impulse control was fair. Vitals/I&O/Wt Last Vital Signs Temp 97.7 F 02/24/25 06:00 Pulse 83 02/24/25 06:00 Resp 18 02/24/25 06:00 BP 100/59 02/24/25 06:00 Pulse Ox 100 02/24/25 06:00 O2 Del Method Room Air 02/24/25 06:00 Weight last 48 hrs Weight 63.503 kg Data NPU 02/04/25 18:01 02/04/25 18:01 A&P Assessment and plan 1. Acute psychosis: 2. Schizophrenia: Plan: Ths is a 59-year-old white male with a long history of mental health and possibly [facility] who presents with erratic behavior which led to a 96-hour hold. Reports history of paranoid schizophrenia with symptoms including paranoia but without auditory hallucinations. Reports depression and anxiety following service and anthrax exposure but is unclear if we anthrax exposure is real or imagined. History of alcohol use disorder, currently in remission since 2010. History of cleft palate and cleft lip with associated speech and developmental delays. Multiple prior psychiatric hospitalizations. No current suicidal or homicidal ideation but he was quite threatening on admission. Plan Prescribed Invega to address mood and irrational thoughts. Recommended monitoring response to the medication to assess efficacy and tolerability. 1. Continue current medication. Initiated Invega injection the loading dose so in the deltoid 234 mg IM. Will get next loading dose in deltoid the next couple of days. 156 mg IM. He received his second loading dose of Invega Sustenna on 02/14/2025 and will be due for his regular monthly dosing on 03/17/2025 234 mg IM. Continue Seroquel 200mg at night along with reduction in invega to 6mg daily with plan to discontinue invega in 5-7 days. Patient per previous records had been on seroquel 400mg at night with invega 234mg monthly prior to running out of his medications. 2. Discontinued one-to-one and started every 15 minute checks for safety. 3. Encourage individual, group and milieu therapy. 4. Encourage sober living treatment after discharge at the highest level care to which she is willing to commit. 5. Obtain collateral information. 6. Patient now on 21-day hold. PDMP PDMP Reviewed: Not Reviewed Involuntary Hold Information 2 Hold Status: Legal Status: 21 Day Hold Date/Time Hold Expires: 03/05/2025 Attestations NPU 2 Medical Necessity Statement*: Inpatient hospitalization is medically necessary and the clinically appropriate intervention at this time. We will monitor/initiate medications and make changes as indicated. The patient's likely length of stay is 3-4 days. Coding Level of Care Code Acute Code for [facility] Fwd Diagnoses Acute psychosis F23 Schizophrenia F20.9
[2025-02-24 13:47] VITALS: BP 94/55; PULSE 78; RESP 16; TEMP 36.7; O2SAT 100
[2025-02-24] MEDS: ATORVASTATIN 10 MG TABLET 40 MG PO (20:27)
[2025-02-24 21:04] VITALS: BP 93/54; PULSE 83; RESP 18; TEMP 36.7; O2SAT 97
[2025-02-25 06:00] VITALS: BP 100/60; PULSE 90; RESP 18; TEMP 37.1; O2SAT 99
[2025-02-25] MEDS: venlafaxine ER (24HR) 75 mg Capsule 225 MG PO (08:41)
[2025-02-25] MEDS: paliperidone ER 6 mg Tablet PO (08:41)
[2025-02-25] MEDS: multivitamin therapeutic Tablet 1 TAB PO (08:41)
[2025-02-25 14:00] VITALS: BP 98/58; PULSE 74; RESP 18; TEMP 36.6; O2SAT 98
--- NOTE | 2025-02-25 17:45 | W.PM.NPUPNS ---
Subjective NPU Subjective: 59-year-old male with schizophrenia admitted with bizarre thinking and behavior. The patient reported no suicidal ideation. He reported no concerns about any 1 attempting to harm anyone here or elsewhere. He had reported that he felt well on his current medications. He had been pleasant and cooperative on the milieu. There was no evidence of aggression on the unit. He denied any hallucinations at this time. Mental Status Exam MSE Comments: This is a slender well-developed white male looking older than his stated age with limited grooming and eye contact. Noteworthy scar on lip consistent with reports of cleft lip and palate. Absent dentition. No abnormal involuntary motor movements appreciated today. He was cooperative with exam and in no acute distress. Mood described as good. His affect was blunted. Thought process was linear, logical and goal directed. Thought content: Patient denied suicidal or homicidal ideation, There was no overt delusions. He denied any auditory or visual hallucinations and did not appear to be responding to internal stimuli. Attention and concentration were fair. Recent and remote memory appeared grossly intact. He is alert and oriented to person, place and time. Insight was improving. His judgment was improving. His impulse control was fair. Vitals/I&O/Wt Last Vital Signs Temp 97.8 F 02/25/25 14:00 Pulse 74 02/25/25 14:00 Resp 18 02/25/25 14:00 BP 98/58 02/25/25 14:00 Pulse Ox 98 02/25/25 14:00 O2 Del Method Room Air 02/25/25 14:00 Weight last 48 hrs Weight 63.503 kg Data NPU 02/04/25 18:01 02/04/25 18:01 A&P Assessment and plan 1. Acute psychosis: 2. Schizophrenia: Plan: Ths is a 59-year-old white male with a long history of mental health and [facility] who presents with erratic behavior which led to a 96-hour hold. Reports history of paranoid schizophrenia with symptoms including paranoia but without auditory hallucinations. Reports depression and anxiety following service and anthrax exposure but is unclear if we anthrax exposure is real or imagined. History of alcohol use disorder, currently in remission since 2010. History of cleft palate and cleft lip with associated speech and developmental delays. Multiple prior psychiatric hospitalizations. No current suicidal or homicidal ideation but he was quite threatening on admission. Plan Prescribed Invega to address mood and irrational thoughts. Recommended monitoring response to the medication to assess efficacy and tolerability. 1. Continue current medication. Initiated Invega injection the loading dose so in the deltoid 234 mg IM. Will get next loading dose in deltoid the next couple of days. 156 mg IM. He received his second loading dose of Invega Sustenna on 02/14/2025 and will be due for his regular monthly dosing on 03/17/2025 234 mg IM. Continue Seroquel 200mg at night along with reduction in invega to 3mg daily with plan to discontinue invega in 5-7 days. Patient per previous records had been on seroquel 400mg at night but is currently on Seroquel 200mg at night here with invega 234mg monthly. 2. Discontinued one-to-one and started every 15 minute checks for safety. 3. Encourage individual, group and milieu therapy. 4. Encourage sober living treatment after discharge at the highest level care to which she is willing to commit. 5. Obtain collateral information. 6. Patient now on 21-day hold. PDMP PDMP Reviewed: Not Reviewed Involuntary Hold Information Hold Status: Legal Status: 21 Day Hold Date/Time Hold Expires: 03/05/2025 Attestations NPU Medical Necessity Statement*: Inpatient hospitalization is medically necessary and the clinically appropriate intervention at this time. We will monitor/initiate medications and make changes as indicated. The patient's likely length of stay is 3-4 days. Coding Level of Care Code Acute Code for [facility] Fwd Diagnoses Acute psychosis F23 Schizophrenia F20.9
[2025-02-25 20:02] VITALS: BP 99/58; PULSE 84; RESP 16; TEMP 36.4; O2SAT 100
[2025-02-25] MEDS: ATORVASTATIN 10 MG TABLET 40 MG PO (20:16)
[2025-02-26 06:00] VITALS: BP 119/69; PULSE 74; RESP 16; TEMP 36.4; O2SAT 100
--- NOTE | 2025-02-26 07:00 | PC.NURSE ---
Blood glucose 183
[2025-02-26] MEDS: multivitamin therapeutic Tablet 1 TAB PO (08:14)
[2025-02-26] MEDS: venlafaxine ER (24HR) 75 mg Capsule 225 MG PO (08:14)
--- NOTE | 2025-02-26 11:00 | PC.NURSE ---
Blood glucose 344
[2025-02-26 13:14] VITALS: BP 99/62; PULSE 91; RESP 18; TEMP 36.7; O2SAT 98
--- NOTE | 2025-02-26 16:02 | W.PM.NPUPNS ---
Subjective NPU Subjective: 59-year-old male with schizophrenia admitted with bizarre thinking and behavior. Patient was pleasant and cooperative on the milieu. He was able to attend groups. He had reported having no thoughts of hurting himself or others. He was redirectable. He had reported no side effects from his medication. He had tolerated the reduction in Invega without any significant problems. He had appeared to understand that he may be going to [facility] upon discharge here. Mental Status Exam MSE Comments: This is a slender well-developed white male looking older than his stated age with limited grooming and eye contact. Noteworthy scar on lip consistent with reports of cleft lip and palate. Absent dentition. No abnormal involuntary motor movements appreciated today. He was cooperative with exam and in no acute distress. Mood described as okay. His affect was euthymic. thought process was linear, logical and goal directed. Thought content: Patient denied suicidal or homicidal ideation, There was no overt delusions. He denied any auditory or visual hallucinations and did not appear to be responding to internal stimuli. Attention and concentration were fair. Recent and remote memory appeared grossly intact. He is alert and oriented to person, place and time. Insight was improving. His judgment was improving. His impulse control was fair. Vitals/I&O/Wt Last Vital Signs Temp 98.1 F 02/26/25 13:14 Pulse 91 02/26/25 13:14 Resp 18 02/26/25 13:14 BP 99/62 02/26/25 13:14 Pulse Ox 98 02/26/25 13:14 O2 Del Method Room Air 02/26/25 13:14 Data NPU 02/04/25 18:01 02/04/25 18:01 A&P Assessment and plan 1. Acute psychosis: 2. Schizophrenia: Plan: Ths is a 59-year-old white male with a long history of mental health and [facility] who presents with erratic behavior which led to a 96-hour hold. Reports history of paranoid schizophrenia with symptoms including paranoia but without auditory hallucinations. Reports depression and anxiety following service and anthrax exposure but is unclear if we anthrax exposure is real or imagined. History of alcohol use disorder, currently in remission since 2010. History of cleft palate and cleft lip with associated speech and developmental delays. Multiple prior psychiatric hospitalizations. No current suicidal or homicidal ideation but he was quite threatening on admission. Plan Prescribed Invega to address mood and irrational thoughts. Recommended monitoring response to the medication to assess efficacy and tolerability. 1. Continue current medication. Initiated Invega injection the loading dose so in the deltoid 234 mg IM. Will get next loading dose in deltoid the next couple of days. 156 mg IM. He received his second loading dose of Invega Sustenna on 02/14/2025 and will be due for his regular monthly dosing on 03/17/2025 234 mg IM. Continue Seroquel 200mg at night along with reduction in invega to 3mg daily with plan to discontinue invega in 5-7 days. Patient per previous records had been on seroquel 400mg at night but is currently on Seroquel 200mg at night here with invega 234mg monthly. 2. Discontinued one-to-one and started every 15 minute checks for safety. 3. Encourage individual, group and milieu therapy. 4. Encourage sober living treatment after discharge at the highest level care to which she is willing to commit. 5. Obtain collateral information. 6. Patient now on 21-day hold. PDMP PDMP Reviewed: Not Reviewed Involuntary Hold Information Hold Status: Legal Status: 21 Day Hold Date/Time Hold Expires: 03/05/2025 Attestations NPU Medical Necessity Statement*: Inpatient hospitalization is medically necessary and the clinically appropriate intervention at this time. We will monitor/initiate medications and make changes as indicated. The patient's likely length of stay is 2-3 days. Coding Level of Care Code Acute Code for [facility] Diagnoses Acute psychosis F23 Schizophrenia F20.9
[2025-02-26] MEDS: ATORVASTATIN 10 MG TABLET 40 MG PO (19:04)
[2025-02-26 22:00] VITALS: BP 113/70; PULSE 71; RESP 17; TEMP 36.6; O2SAT 100
[2025-02-27 06:00] VITALS: BP 106/63; PULSE 69; RESP 18; O2SAT 100
[2025-02-27] MEDS: venlafaxine ER (24HR) 75 mg Capsule 225 MG PO (08:42)
[2025-02-27] MEDS: multivitamin therapeutic Tablet 1 TAB PO (08:42)
[2025-02-27 14:00] VITALS: BP 114/66; PULSE 79; RESP 19; TEMP 36.6; O2SAT 99
--- NOTE | 2025-02-27 14:26 | P.NPUPN_ITS ---
Subjective NPU 2 Subjective: 59-year-old male with schizophrenia admi tted with bizarre thinking and behavior. The patient had reported that he had retained a spiral gear generator and was hopeful about avoiding [facility] time. He had reported no thoughts of hurting himself or others. He had reported that he was feeling pretty good with no reports of problems with confusion or concentration as we were reducing the oral paliperidone. He reported no depressed mood. He denied any hallucinations at this time. He was able to attend groups. He appeared to understand that he may be going to [facility] prior to returning to live with his brother. Mental Status Exam 2 MSE Comments: This is a slender well-developed white male looking older than his stated age with limited grooming and eye contact. Noteworthy scar on lip consistent with reports of cleft lip and palate. Absent dentition. No abnormal involuntary motor movements appreciated today. He was cooperative with exam and in no acute distress. Mood described as good. His affect was euthymic. Thought process was linear, logical and goal directed. Thought content: Patient denied suicidal or homicidal ideation, There was no overt delusions. He denied any auditory or visual hallucinations and did not appear to be responding to internal stimuli. Attention and concentration were fair. Recent and remote memory appeared grossly intact. He is alert and oriented to person, place and time. Insight was improving. His judgment was improving. His impulse control was fair. Vitals/I&O/Wt Last Vital Signs Temp 97.9 F 02/26/25 22:00 Pulse 69 02/27/25 06:00 Resp 18 02/27/25 06:00 BP 106/63 02/27/25 06:00 Pulse Ox 100 02/27/25 06:00 O2 Del Method Room Air 02/27/25 06:00 02/26/25 02/27/25 02/27/25 22:59 06:59 14:59 Intake Total 720 / 720 Balance 720 / 720 Data NPU 02/04/25 18:01 02/04/25 18:01 A&P Assessment and plan 1. Acute psychosis: 2. Schizophrenia: Plan: Rosa is a 59-year-old white male with a long history of mental health and possibly [facility] who presents with erratic behavior which led to a 96-hour hold. Reports history of paranoid schizophrenia with symptoms including paranoia but without auditory hallucinations. Reports depression and anxiety following service and anthrax exposure but is unclear if we anthrax exposure is real or imagined. History of alcohol use disorder, currently in remission since 2010. History of cleft palate and cleft lip with associated speech and developmental delays. Multiple prior psychiatric hospitalizations. No current suicidal or homicidal ideation but he was quite threatening on admission. Plan Prescribed Invega to address mood and irrational thoughts. Recommended monitoring response to the medication to assess efficacy and tolerability. 1. Continue current medication. Initiated Invega injection the loading dose so in the deltoid 234 mg IM. Will get next loading dose in deltoid the next couple of days. 156 mg IM. He received his second loading dose of Invega Sustenna on 02/14/2025 and will be due for his regular monthly dosing on 03/17/2025 234 mg IM. Continue Seroquel 200mg at night along with discontinuation of oral invega on 03/01/25. Patient per previous records had been on seroquel 400mg at night but is currently on Seroquel 200mg at night here with invega 234mg monthly. 2. Discontinued one-to-one and started every 15 minute checks for safety. 3. Encourage individual, group and milieu therapy. 4. Encourage sober living treatment after discharge at the highest level care to which she is willing to commit. 5. Obtain collateral information. 6. Patient now on 21-day hold. PDMP PDMP Reviewed: Not Reviewed Involuntary Hold Information 2 Hold Status: Legal Status: 21 Day Hold Date/Time Hold Expires: 03/05/2025 Attestations NPU 2 Medical Necessity Statement*: Inpatient hospitalization is medically necessary and the clinically appropriate intervention at this time. We will monitor/initiate medications and make changes as indicated. The patient's likely length of stay is 2-3 days. Coding Level of Care Code Acute Code for [facility] Diagnoses Acute psychosis F23 Schizophrenia F20.9
[2025-02-27] MEDS: polyethylene glycol 3350 Pkt 17 gm PO (15:35)
[2025-02-27] MEDS: ATORVASTATIN 10 MG TABLET 40 MG PO (19:41)
[2025-02-27 22:00] VITALS: BP 112/61; PULSE 86; RESP 18; TEMP 36.6; O2SAT 98
[2025-02-28 06:00] VITALS: BP 113/67; PULSE 72; RESP 18; TEMP 36.6; O2SAT 100
[2025-02-28] MEDS: multivitamin therapeutic Tablet 1 TAB PO (08:35)
[2025-02-28] MEDS: venlafaxine ER (24HR) 75 mg Capsule 225 MG PO (08:36)
--- NOTE | 2025-02-28 12:27 | P.NPUPN_ITS ---
Subjective NPU 2 Subjective: 59-year-old male with schizophrenia admi tted with bizarre thinking and behavior with psychosis. The patient appeared pleasant and cooperative on the milieu. He had expressed hope that he would not have to go to prison. He had denied having any thoughts of hurting himself or anyone else. He reported adequate sleep. He reported that he was feeling pretty good in general with no concerns about remaining compliant with his medication regimen. He had stated that he would be staying with his brother indefinitely. He had reported that the audio video mechanic had been retained and he was hopeful about hearing from his audio video mechanic about whether they would potentially drop the legal proceedings against him. Mental Status Exam 2 MSE Comments: This is a slender well-developed white male looking older than his stated age with normal grooming and fair eye contact. Noteworthy scar on lip consistent with reports of cleft lip and palate. Absent dentition. No abnormal involuntary motor movements appreciated today. He was cooperative with exam and in no acute distress. Mood described as good. His affect was euthymic. Thought process was linear, logical and goal directed. Thought content: Patient denied suicidal or homicidal ideation, There was no overt delusions. He denied any auditory or visual hallucinations and did not appear to be responding to internal stimuli. Attention and concentration were fair. Recent and remote memory appeared grossly intact. He is alert and oriented to person, place and time. Insight was improving. His judgment was improving. His impulse control was fair. Vitals/I&O/Wt Last Vital Signs Temp 97.8 F 02/28/25 06:00 Pulse 72 02/28/25 06:00 Resp 18 02/28/25 06:00 BP 113/67 02/28/25 06:00 Pulse Ox 100 02/28/25 06:00 O2 Del Method Room Air 02/28/25 06:00 02/27/25 02/28/25 02/28/25 22:59 06:59 14:59 Intake Total 480 / 1200 480 / 480 Balance 480 / 1200 480 / 480 Data NPU 02/04/25 18:01 02/04/25 18:01 A&P Assessment and plan 1. Acute psychosis: 2. Schizophrenia: Plan: Thjames is a 59-year-old white male with a long history of mental health and possibly [facility] who presents with erratic behavior which led to a 96-hour hold. Reports history of paranoid schizophrenia with symptoms including paranoia but without auditory hallucinations. Reports depression and anxiety following service and anthrax exposure but is unclear if we anthrax exposure is real or imagined. History of alcohol use disorder, currently in remission since 2010. History of cleft palate and cleft lip with associated speech and developmental delays. Multiple prior psychiatric hospitalizations. No current suicidal or homicidal ideation but he was quite threatening on admission. Plan Prescribed Invega to address mood and irrational thoughts. Recommended monitoring response to the medication to assess efficacy and tolerability. 1. Continue current medication. Initiated Invega injection the loading dose so in the deltoid 234 mg IM. Will get next loading dose in deltoid the next couple of days. 156 mg IM. He received his second loading dose of Invega Sustenna on 02/14/2025 and will be due for his regular monthly dosing on 03/17/2025 234 mg IM. Continue Seroquel 200mg at night along with discontinuation of oral invega on 03/01/25. Patient per previous records had been on seroquel 400mg at night but is currently on Seroquel 200mg at night here with invega 234mg monthly. 2. Discontinued one-to-one and started every 15 minute checks for safety. 3. Encourage individual, group and milieu therapy. 4. Encourage sober living treatment after discharge at the highest level care to which she is willing to commit. 5. Obtain collateral information. 6. Patient now on 21-day hold. Likely discharge tommorow. PDMP PDMP Reviewed: Not Reviewed Involuntary Hold Information 2 Hold Status: Legal Status: 21 Day Hold Date/Time Hold Expires: 03/05/2025 Attestations NPU 2 Medical Necessity Statement*: Inpatient hospitalization is medically necessary and the clinically appropriate intervention at this time. We will monitor/initiate medications and make changes as indicated. The patient's likely length of stay is 1-2 days. Coding Level of Care Code Acute Code for [facility] Diagnoses Acute psychosis F23 Schizophrenia F20.9
[2025-02-28 14:00] VITALS: BP 105/67; PULSE 88; RESP 16; TEMP 36.4; O2SAT 100
[2025-02-28 19:43] VITALS: BP 121/72; PULSE 82; RESP 17; TEMP 36.6; O2SAT 97
[2025-02-28] MEDS: ATORVASTATIN 10 MG TABLET 40 MG PO (20:10)
[2025-03-01 06:00] VITALS: BP 118/71; PULSE 75; RESP 18; TEMP 36.4; O2SAT 99
[2025-03-01] MEDS: multivitamin therapeutic Tablet 1 TAB PO (08:21)
[2025-03-01] MEDS: venlafaxine ER (24HR) 75 mg Capsule 225 MG PO (08:21)
[2025-03-01 14:00] VITALS: BP 121/76; PULSE 72; RESP 16; TEMP 36.5; O2SAT 100
--- NOTE | 2025-03-01 14:40 | W.PM.NPUDCS ---
Diagnoses at Discharge Discharge Diagnosis 1. Acute psychosis: 2. Schizophrenia: Reason for Visit Reason for Visit: mhe Brief History: History of Present Illness Filiberto Espinoza is a 59 year old male who presented to the emergency department with the following report: Chief Complaint: Psychiatric Symptoms Stated Complaint: mhe Time Seen by Provider: 02/04/25 16:25 History of Present Illness: Patient is a 59-year-old male brought in by police department of [facility], for making terroristic threats. He states you all are going to and I took anthrax today. [facility] launch commander [employer] police relates that the city brought him to the group home for a 96-hour hold. The 96-hour hold was signed off by [facility] [employer], and patient was brought here for medical screening examination and placement in psychiatric facility. He has charges for terroristic threats. Patient states to officer at bedside I am bombing the building, I already called in a bomb, you are a man anyway. When I looked at him stating what about the sweet children and the old people, looking at me he states you are all anyway. Patient would not stop talking, in tangential manner, regarding the [place] war, and anthrax. Officer notes that he was cooperative until he got to the door ER at which time he started to collapse, and talking as noted above. Associated symptoms: Reports delusions He was admitted to the neuropsychiatric unit for definitive treatment of those issues. He has not submitted for a UDS and presented unknown to [facility] psychiatric through inpatient or outpatient services reporting: Chief complaint Presentation for evaluation of chronic mental health symptoms including paranoia, depression, and history of multiple psychiatric hospitalizations. History of the present complaint Reported being a and described the local community as consisting primarily of veterans, expressing a strong sense of responsibility to protect those around. Described receiving an anthrax vaccination during service and identified as the last surviving member of those affected by anthrax exposure. Stated that after receiving the anthrax shot, began experiencing mental health changes, describing a transition from feeling totally normal to developing mental health symptoms. Attributed the onset of mental health issues to the anthrax exposure and referenced a belief that the infection led to significant changes in mental status. Reported multiple psychiatric hospitalizations since returning from service, estimating between 20 and 50 admissions over the years. Described being brought to the hospital to protect family and the community, referencing concerns about threats and the need to save [employer] and eliminate perceived threats. Expressed paranoia related to anthrax infection, describing fears of harming others and being monitored for stability. Endorsed a history of depression, anxiety, and paranoia, stating I've had all those things. Reported paranoia as a persistent symptom, particularly related to fears of infecting others and concerns about safety in the community. Described acting like a maniac at [facility] due to worsening symptoms and traffic caused by others. Reported a diagnosis of paranoid schizophrenia, describing symptoms as very mild and specifying that has never experienced auditory hallucinations or voices instructing actions. Described the presence of distracting voices in the head but denied command hallucinations. Noted a family history of schizophrenia on the maternal side. Reported bizarre and strange dreams that disrupt sleep but denied experiencing nightmares or flashbacks related to past trauma. Described a history of quick temper and feistiness, with efforts to control anger and avoid overreacting. Reported a history of alcohol use and dependence, with inpatient treatment at the [facility] for two weeks and stated abstinence from alcohol since 2010. Described outpatient counseling and support for various addictions and dependencies, including participation in clinics and groups. Denied current use of marijuana, methamphetamine, opiates, or other illicit drugs. Endorsed tobacco use, stating it has kept me alive so far, and expressed ambivalence about quitting. 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 Described persistent underdevelopment in size and speech difficulties, with special education services focused on speech. Reported no history of neglect, physical abuse, emotional abuse, or sexual abuse during childhood, describing the family as kind of spoiled and fortunate. Stated that parents remained together until the father's at age 31 due to stress and overwork. Reported the recent of mother approximately three months ago in 2018. Has one older brother and no other siblings. 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 Described living alone in an apartment and receiving disability benefits. Reported one marriage lasting 15 years, ending due to disability and spouse's need to care for family. Has one biological child and a son with a half-sister. Reported being prescribed Effexor for mental health symptoms, with uncertainty about the exact dosage. Described receiving other medications to maintain blood sugar and fracture health, but did not specify additional psychiatric medications. Reported a history of alcoholism treatment and abstinence since 2010. Described current health as totally healthy, but just dying, with concerns about blood sugar levels being out of control and needing ongoing monitoring. Reported being given pills to manage symptoms and sleep until the next day. Expressed a desire to stay alive and denied current suicidal ideation. Reported that as long as can reach brother, mood remains stable and paranoia is alleviated. Described ongoing fears of harming others due to anthrax infection but expressed intent to avoid causing harm. Reported that once reunited with brother and outside the current environment, would no longer be a threat to others. Described plans for end-of-life care involving cremation to prevent further anthrax contamination. Mental health history Had onset of psychiatric symptoms following [place] anthrax vaccination, describing ?became totally mental? upon return from service. History of paranoid schizophrenia with persistent persecutory delusions regarding infectivity and need to protect others. Also experienced depressive and anxious symptoms related to these beliefs. Multiple inpatient psychiatric admissions since discharge, including [facility] and numerous brief stays for behavioral health evaluation. [facility] and mental health monitoring. Currently prescribed venlafaxine (Effexor) for mood symptoms, dose to be clarified. Family history notable for schizophrenia on maternal side. Social history [place] of the [place] with a single 15-year marriage that ended when spouse assumed family caregiving responsibilities. Has one biological son and a stepsister to that son living in the [facility], and an older brother who provides support. Resides alone in an apartment. 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 History of alcohol use disorder with [facility] and sustained sobriety since 2010. Continues regular tobacco use as a coping mechanism. Denies cannabis and other illicit drug use. Involuntary Hold Information Hold Status: Legal Status: 21 Day Hold Date/Time Hold Expires: 03/05/2025 Mental Status Exam MSE Comments: This is a slender well-developed white male looking older than his stated age with normal grooming and fair eye contact. Noteworthy scar on lip consistent with reports of cleft lip and palate. Absent dentition. No abnormal involuntary motor movements appreciated today. He was cooperative with exam and in no acute distress. Mood described as good. His affect was euthymic. Thought process was linear, logical and goal directed. Thought content: Patient denied suicidal or homicidal ideation, There was no overt delusions. He denied any auditory or visual hallucinations and did not appear to be responding to internal stimuli. Attention and concentration were fair. Recent and remote memory appeared grossly intact. He is alert and oriented to person, place and time. Insight was improving. His judgment was improving. His impulse control was fair. Discharge Data Studies Completed and Pending: Laboratory Results WBC 10.35 10^3/uL (3. 29-11.43) 02/04/25 18:01 RBC 4.61 10^6/uL (3.8 5-5.65) 02/04/25 18:01 Hgb 14.50 g/dL (11.27 -16.99) 02/04/25 18:01 Hct 41.6 % (37-53) 02/04/25 18:01 MCV 90.2 fl (82-101) 02/04/25 18:01 MCH 31.5 pg (27-33) 02/04/25 18:01 MCHC 34.9 g/dL (30-55) 02/04/25 18:01 RDW 12.5 % (12.1-15.1 ) 02/04/25 18:01 Plt Count 185 10^3/cmm (157 -399) 02/04/25 18:01 MPV 9.5 fL (7.4-10.4) 02/04/25 18:01 Neut % (Auto) 75.5 % 02/04/25 18:01 Lymph % (Auto) 15.7 % 02/04/25 18:01 [place] % (Auto) 7.3 % 02/04/25 18:01 Eos % (Auto) 0.8 % 02/04/25 18:01 Baso % (Auto) 0.4 % 02/04/25 18:01 Neut # (Auto) 7.82 10^3/uL (1.8 -7.7) H 02/04/25 18:01 Lymph # (Auto) 1.6 10^3/uL (0.8- 4.8) 02/04/25 18:01 [place] # (Auto) 0.8 10^3/uL (0.2- 0.9) 02/04/25 18:01 Eos # (Auto) 0.1 10^3/uL (0.0- 0.8) 02/04/25 18:01 Baso # (Auto) 0.0 10^3/uL (0.0- 0.1) 02/04/25 18:01 Nucleated RBC % (a uto) 0 % 02/04/25 18: Nucleated RBCs # 0.0 /100WBC 02/04/25 18:01 Sodium 140 mmol/L (136-1 45) 02/04/25 18:01 Potassium 3.0 mmol/L (3.5-5 .1) L 02/04/25 18: Chloride 106 mmol/L (98-10 7) 02/04/25 18:01 Carbon Dioxide 22 mmol/L (22-29) 02/04/25 18:01 Anion Gap 15.0 (5-19) 02/04/25 18: BUN 16 mg/dL (6-20) 02/04/25 18:01 Creatinine 0.5 mg/dL (0.7-1. 2) L 02/04/25 18:01 GFR Calculation 171.4 mL/min (90- 130) H 02/04/25 18:01 Glucose 174 mg/dL (65-115 ) H 02/04/25 18:01 POC Glucose 164 mg/dL (70-110 ) H 03/01/25 11:02 Calculated Osmolal ity 295 mOsm/kg (285- 295) 02/04/25 18: Calcium 9.2 mg/dL (8.5-10 .5) 02/04/25 18:01 Total Bilirubin 0.7 mg/dL (0.15-1 .2) 02/04/25 18:01 AST 29 U/L (0-40) 02/04/25 18:01 ALT 28 U/L (0-41) 02/04/25 18:01 Alkaline Phosphata se 109 U/L (40-130) 02/04/25 18:01 Total Protein 6.5 g/dL (6.6-8.7 ) L 02/04/25 18:01 Albumin 4.1 g/dL (3.5-5.2 ) 02/04/25 18:01 Globulin 2.4 g/dL (1.3-4.6 ) 02/04/25 18:01 TSH 0.51 uIU/mL (0.27 -4.20) 02/04/25 18:01 Urine Color Yellow (Yellow) 02/05/25 12:40 Urine Appearance Clear (CLEAR) 02/05/25 12:40 Urine pH 6.0 (5-7) 02/05/25 12:40 Ur Specific Gravit y 1.015 (1.005-1.0 30) 02/05/25 12:40 Urine Protein Negative (Negati ve) 02/05/25 12:40 Urine Glucose (UA) 2+ (Normal) H 02/05/25 12:40 Urine Ketones Trace (Negative) 02/05/25 12:40 Urine Blood Negative (Negati ve) 02/05/25 12:40 Urine Nitrate Negative (Negati ve) 02/05/25 12:40 Urine Bilirubin Negative (Negati ve) 02/05/25 12:40 Urine Urobilinogen 4.0 mg/dL (Negati ve) H 02/05/25 12:40 Ur Leukocyte Aliza ase 1+ (Negative) A 02/05/25 12:40 Urine RBC 0-2 /hpf (0-2) 02/05/25 12:40 Urine WBC 11-20 /hpf (0-5) H 02/05/25 12:40 Ur Squamous Epith Cells 0-5 /hpf (0-5) 02/05/25 12:40 Amorphous Sediment Not Reportable 02/05/25 12:40 Urine Bacteria None seen /hpf (N ONE) 02/05/25 12:40 Hyaline Casts 1.65 /lpf 02/05/25 12:40 Salicylates < 0.3 mg/dL (3-10 ) L 02/04/25 18:01 Urine Opiates Scre en Negative ng/mL (N egative) 02/05/25 12:40 Acetaminophen < 5.0 ug/mL (10-3 0) L 02/04/25 18:01 Ur Barbiturates Sc reen Negative ng/mL (N egative) 02/05/25 12:40 Ur Phencyclidine S crn Negative ng/mL (N egative) 02/05/25 12:40 Ur Amphetamines Sc reen Negative ng/mL (N egative) 02/05/25 12:40 U Benzodiazepines Scrn Positive ng/mL (N egative) H 02/05/25 12:40 Urine Cocaine Scre en Negative ng/mL (N egative) 02/05/25 12:40 U Marijuana (THC) Screen Negative ng/mL (N egative) 02/05/25 12:40 Ethyl Alcohol < 10 mg/dL (0-10) 02/04/25 18:01 Vitals: Last Vital Signs Temp 97.7 F 03/01/25 14:00 Pulse 72 03/01/25 14:00 Resp 16 03/01/25 14:00 BP 121/76 03/01/25 14:00 Pulse Ox 100 03/01/25 14:00 O2 Del Method Room Air 03/01/25 06:00 Discharge Plan Discharge Patient Disposition: Home Condition: Stable Prescriptions: New atorvastatin [Lipitor] 40 mg tablet 40 mg PO BEDTIME 30 Days Qty: 30 1RF haloperidol 5 mg Tablet 5 mg PO BID PRN (Reason: Agitation) 30 Days Qty: 30 1RF hydroxyzine pamoate 25 mg Capsule 50 mg PO Q6H PRN (Reason: Anxiety) 30 Days Qty: 120 1RF lisinopril 10 mg tablet 10 mg PO DAILY 30 Days Qty: 30 1RF quetiapine 200 mg tablet 200 mg PO BEDTIME 30 Days Qty: 30 1RF venlafaxine 75 mg Capsule,Extended Release 24hr 225 mg PO DAILY 30 Days Qty: 90 1RF trazodone 50 mg Tablet 50 mg PO BEDTIME PRN (Reason: Sleep) 30 Days Qty: 30 1RF Invega Sustenna 234 mg/1.5 mL syringe 234 mg IM Q30D 30 Days Qty: 1.5 2RF Rx Instructions: Next injection 03/17/25 then as directed insulin lispro [Humalog U-100 Insulin] 100 unit/mL Solution See Protocol SUBCUT WM&BEDTIME 30 Days Qty: 10 1RF Protocol: Insulin Corrective High-Dose Regimen Condition: Fingerstick Blood Glucose Dose/Route: Insulin Units Condition: 141-180 mg/dl Dose/Route: 4 units/SQ Condition: 181-220 mg/dl Dose/Route: 6 units/SQ Condition: 221-260 mg/dl Dose/Route: 8 units/SQ Condition: 261-300 mg/dl Dose/Route: 10 units/SQ Condition: 301-350 mg/dl Dose/Route: 12 units/SQ Condition: 351-400 mg/dl Dose/Route: 14 units/SQ Condition: greater than 400 mg/dl Dose/Route: 16 units/SQ Rx Instructions: This is actually a moderate dose regimen but could not get it to find the moderate dose. This is the high dose regimen that has been corrected to represent the moderate dose Discharge Order = DC NOW: Discharge Order (Routine); Ordered 03/01/25 Ordered By: Lloyd Stovall Referrals: [facility] - [facility] [Other, Family Practice] - 03/21/25 2:00 pm Referral Note: Establish care appointment [facility] [Other, Psychiatry] - 03/04/25 10:00 am Referral Note: Establish Care with Kadie Gutierrez APN Discharge Diet: Usual diet Discharge Activity: Resume usual activity Patient Instructions: Opioid Safety, Patient Portal & Michelle Instructions Discharge Attestations NPU Time Spent in Discharge Care*: less than 30 min Specific Discharge Activities: Specific discharge activities: educating patient, discussing with case mgr/social workers/dc planners, documenting/other paperwork and evaluating patient/reviewing data Coding Level of Care Code Acute Code for Chg Fwd Diagnoses Acute psychosis F23 Schizophrenia F20.9
[2025-03-01 14:43] VITALS: BP 121/76; PULSE 72; RESP 16; TEMP 36.5; O2SAT 100
== END 2025-03-01 16:07 | disposition home or self-care (01) | DRG 885 ==
LOC: ER 17:44 → NP 20:43
PROVIDERS: Admitting Provider Psychiatry & Neurology Psychiatry; Emergency Provider Physician Assistant; Visit Provider Psychiatry & Neurology Psychiatry
DX: F20.0 Paranoid schizophrenia (principal); S91.012A Laceration without foreign body, left ankle, initial encounter; S91.011A Laceration without foreign body, right ankle, initial encounter; X58.XXXA Exposure to other specified factors, initial encounter; E87.6 Hypokalemia; Z81.8 Family history of other mental and behavioral disorders; Q37.9 Unspecified cleft palate with unilateral cleft lip; F10.21 Alcohol dependence, in remission; F32.A Depression, unspecified; F41.9 Anxiety disorder, unspecified
CPT/HCPCS: 36415; 36416; 80053; 80306; 80307; 81001; 82962; 84443; 85025; 96372; 97150; 97165; 99285; J1815; J2060; J3486; J9999